=== PATIENT | female | born 1955 | race Caucasian/White ===

== ENCOUNTER → 2016-06-20 | Outpatient (CLI) | payer OTHER ==
[~2016-06-20] MED LIST: ABILIFY10 MG PO; AMBIEN 5 MG TABL5 M1 PO; ASPIRIN325 PO; ATIVAN0.5 MG PO; ATIVAN1 MG OR; CALCIUM 600 +1 EAC1 PO; CENTRUM SILVER1 EAC1 PO; COLACE 100 MG100 MG PO; CYMBALTA30 MG PO; CYMBALTA60 MG PO; HYDROCODON-ACE1 EAC5 PO; HYDROCODON-ACE1 EAC8 PO; HYDROCODONE-APA1 TA1 PO; IBUPROFEN 800800 M1 PO; L-THYROXINE PO; LEVOTHYROXIN0.075 MG PO; LEVOTHYROXINE0.05 MG PO; LEXAPRO20 MG OR; LIPITOR 20 MG T20 M1 PO; NABUMETONE 500500 M1 PO; NEURONTIN600 MG PO; NEXIUM40 MG PO; OXYCODONE HCL 55 MG PO; PROZAC20 MG PO; SENNA S TABLET1 EACH PO; TOPROL XL50 MG PO; ULTRAM 50MG TAB50 MG PO; UNICOMPLEX M TA1 TA1 PO; VITAMIN B-12500 MCG PO; ZOFRAN ODT4 MG PO
== END ==
LOC: RAD 09:25
DX: Z12.31 Encounter for screening mammogram for malignant neoplasm of breast (principal)

== ENCOUNTER 2016-07-30 10:13 | Emergency (ER) | payer OTHER ==
[~2016-07-30] VITALS: Ht 154.9 cm; Wt 56.7 kg
[2016-07-30] MEDS ORDERED: OMEPRAZOLE20 M1 PO (10:24)
[2016-07-30] MEDS ORDERED: WELLBUTRIN SR150 MG PO (10:25)
[2016-07-30] MEDS ORDERED: MAGIC MOUTHWASH SWISH&SPIT (10:43)
== END 2016-07-30 11:07 ==
LOC: ER 10:13
DX: K13.79 Other lesions of oral mucosa (principal); K12.1 Other forms of stomatitis; I10 Essential (primary) hypertension; E78.00 Pure hypercholesterolemia, unspecified; F32.9 Major depressive disorder, single episode, unspecified; Z86.2 Personal history of diseases of the blood and blood-forming organs and certain disorders involving the immune mechanism; Z90.710 Acquired absence of both cervix and uterus; Z85.828 Personal history of other malignant neoplasm of skin; F17.210 Nicotine dependence, cigarettes, uncomplicated; Z90.49 Acquired absence of other specified parts of digestive tract; Z88.2 Allergy status to sulfonamides; Z88.5 Allergy status to narcotic agent; Z88.8 Allergy status to other drugs, medicaments and biological substances

== ENCOUNTER → 2016-10-05 | Outpatient (CLI) | payer OTHER ==
[~2016-10-05] VITALS: Ht 154.9 cm; Wt 54.6 kg
[~2016-10-05] MED LIST changes: +FLUOCINONI0.05 %/30 TOP; +HYDROCODONE-AP1 EAC6 PO; +LIDOCAINE VISC100 ML MM; +MAGIC MOUTHWASH SWISH&SPIT; +MOBIC15 MG PO; +OMEPRAZOLE20 M1 PO; +WELLBUTRIN SR150 MG PO
--- NOTE | ~2016-10-05 | HPC ---
[facility] [place] [address] PAIN MANAGEMENT CONSULTATION Name: LIDIA MCKAY Room #: REG [facility].#: [id number] Admission: 10/05/16 Attend Phys: Diogenes Cruz DO Discharge: Date of : 51 Report #: [id number] THIS REPORT FOR: //name// CC: [facility] physician/PCP Diogenes Pearce MD DATE OF SERVICE: 10/05/2016 DATE OF SERVICE: 10/05/2016 CHIEF COMPLAINT: Mid back pain. Lower extremity pain. HISTORY OF PRESENT ILLNESS: As you know, the patient is a 61-year-old female, who began experiencing low back pain, lower extremity pain with paresthesias that presented approximately 3 weeks ago despite conservative treatment. Her pain intensified. Over the last week, her pain has reached a level of 8/10. She states her pain is sharp and aching in sensation, exacerbated with sitting and walking, improves with ice and rest. She has been referred back to our clinic by her primary care physician to trial an epidural injection under fluoroscopic guidance. As you are aware, the patient has had to have kyphoplasties in the past due to vertebral compression fractures. There is no concern apparently of vertebral compression fracture at this time, appears to be more radicular in origin. The patient was seen in the Emergency Department and subsequently referred back to our clinic to trial an epidural injection. The patient denies any injury or trauma that may have led to symptoms. She has had a slow and progressive worsening of pain. ALLERGIES: PROPOXYPHENE, SULFA, CODEINE. CURRENT MEDICATIONS: Meloxicam, hydrocodone, Lidoderm, bupropion, omeprazole, fluoxetine, multivitamins, metoprolol, atorvastatin, levothyroxine, cyanocobalamin, gabapentin, and calcium carbonate. SOCIAL HISTORY: The patient continues to smoke, reporting half pack tobacco per day. Denies IV or illicit drug use. Denies any chronic alcohol use. She is unaccompanied today. IMAGING: No new imaging available. PHYSICAL EXAMINATION: VITAL SIGNS: Blood pressure 127/82, pulse 62, respiratory rate 16, unlabored. The patient is 100% on room air, height 5 feet 1 inch tall, weight 120 pounds, BMI calculated 22.8. GENERAL: Well developed, well nourished, well hydrated 61-year-old female, who appears her stated age. She smells of tobacco smoke today, [place] [address] PAIN MANAGEMENT CONSULTATION Name: LIDIA MCKAY Room #: REG CLI [facility].#: [id number] Admission: 10/05/16 Attend Phys: Diogenes Cruz DO Discharge: Date of : 51 Report #: [id number] score at 8/10. HEENT: Normocephalic, atraumatic. Pupils equal, round, reactive to light. Extraocular muscles are intact. Sclerae nonicteric, without injection. EXTREMITIES: Show no clubbing, no cyanosis, no edema. MUSCULOSKELETAL: The patient does have some tenderness to palpation over the paraspinal musculature of the thoracic and lumbar area, no spinous process tenderness. Seated straight leg raising negative. Supine straight leg raising negative. Gabriela's test negative. Modified Gaenslen's positive for axial low back pain. Ankle clonus negative. Babinski is negative. She is intact to light touch from L1 through S2 dermatomes. ASSESSMENT: 1. Lumbar radiculopathy. 2. Myofascial pain. 3. Lumbosacral spondylosis with radicular symptoms. 4. Chronic intractable pain. PLAN: 1. The patient returns today in followup visit with increasing back pain, lower extremity pain and paresthesias. Her symptoms do appear to be radicular in origin. The patient was seen in the Emergency Department and subsequently referred to our clinic to trial an epidural injection, as she appeared to be suffering from lumbar radicular symptoms at that time. She has been referred to our clinic to trial an epidural injection. We have advised the patient of the risks and benefits. These risks include but are not necessarily limited to bleeding, bruising, infection, worsening pain, no relief of pain, also risk of temporary or permanent muscle weakness, temporary or permanent nerve damage, possible paralysis and . The patient states understood and wished to proceed. 2. The patient will return to our clinic on an as needed basis for possible repeat epidural injection. 3. The patient was provided a refill prescription on her hydrocodone 5/325 one tab every 6 hours p.r.n. for pain. I have given the patient a short dosing of 45 tablets, advised the patient not to take this medication consistently. She is to take the medication only when pain is intolerable. She is not to rely prophylactically. PROCEDURE NOTE DESCRIPTION OF PROCEDURE: L5-S1 right paramedian epidural steroid injection under fluoroscopic guidance. This is the first procedure of the first series that the patient is undergoing. After obtaining written consent, the patient was taken back to the fluoroscopy suite, placed in a prone position with pillow under the abdomen to decrease [address] [address] PAIN MANAGEMENT CONSULTATION Name: LIDIA MCKAY Room #: REG [facility] [place]#: [id number] Admission: 10/05/16 Attend Phys: Diogenes Cruz DO Discharge: Date of : 51 Report #: [id number] lumbar lordosis. The skin overlying the lumbosacral area was then prepped and draped in aseptic fashion. The L5-S1 vertebral interspace was then identified by AP fluoroscopy. The skin and subcutaneous tissue overlying the target site of injection was anesthetized with 3 mL 1% lidocaine. A 20-gauge 3-1/2 inches Tuohy needle was then advanced under fluoroscopic guidance towards the epidural space using a right paramedian approach. The epidural space was identified using loss of resistance to air technique. After negative aspiration for heme or cerebrospinal fluid, a total of 1 mL of Omnipaque was injected. A lumbar epidurogram was confirmed using both AP and lateral fluoroscopy. After negative aspiration for heme or cerebrospinal fluid, 5 mL of solution containing 2 mL 40 mg per mL, 80 mg total triamcinolone, 3 mL of lidocaine 1% was injected in increments. Contrast spread was noted posterior epidural space. The needle was then retracted approximately half way and needle tract flushed with 1 mL of 1% lidocaine. Needle was then removed. There were no apparent sensory or motor deficits in the lower extremity following the procedure. A sterile bandage was placed over the injection site. The heart rate, pulse, oximetry and blood pressure were continuously monitored after the procedure. There were no apparent complications. The patient tolerated the procedure well and was carefully escorted to the recovery room in stable condition. There were no apparent complications. After meeting discharge criteria, the patient was then discharged home. <ELECTRONICALLY SIGNED> By: Diogenes Cruz DO 10/17/1604 6 Diogenes Cruz DO /nt
[2016-10-05 10:29] VITALS: BP 127/82
== END | disposition home or self-care (01) ==
LOC: PAIN 07:05
DX: M54.16 Radiculopathy, lumbar region (principal); M79.1 Myalgia; M47.27 Other spondylosis with radiculopathy, lumbosacral region; G89.29 Other chronic pain; Z88.8 Allergy status to other drugs, medicaments and biological substances; Z79.899 Other long term (current) drug therapy; Z87.891 Personal history of nicotine dependence

== ENCOUNTER → 2016-10-18 | Outpatient (CLI) | payer OTHER ==
[~2016-10-18] VITALS: Ht 154.9 cm; Wt 53.9 kg
--- NOTE | ~2016-10-18 | HPC ---
[facility] [place] [address] PAIN MANAGEMENT CONSULTATION Name: LIDIA MCKAY Room #: REG [facility].#: [id number] Admission: 10/18/16 Attend Phys: Diogenes Cruz DO Discharge: Date of : 51 Report #: [id number] THIS REPORT FOR: //name// CC: [facility] physician/PCP Diogenes Pearce MD DATE OF SERVICE: 10/18/2016 REFERRING PHYSICIAN: Marie Pearce M.D. CHIEF COMPLAINT: Low back pain and lower extremity pain. HISTORY OF PRESENT ILLNESS: As you know, the patient is a 61-year-old female who returns today in followup visit indicating no improvement with the epidural injection provided at the last visit. The patient states that she received not even transient improvement in symptoms. She indicates the pain level of 7/10. She returns today in followup visit to discuss options for treatment. She, as you are aware, has been visiting the emergency department for ongoing back pain issues. She was seen per their request where her CT examination showed a large amount of stool and even undigested pills in the area. The findings in the lumbar region were noted to be fairly severe arthritic changes. Unfortunately, the patient did not improve with our epidural injection. She returns today in followup visit to discuss other options. ALLERGIES: PROPOXYPHENE, SULFA and CODEINE. CURRENT MEDICATIONS: Meloxicam, hydrocodone, Lidoderm, bupropion, omeprazole, fluoxetine, multivitamin, metoprolol, atorvastatin, levothyroxine, cyanocobalamin, gabapentin and calcium carbonate. SOCIAL HISTORY: The patient continues to smoke half pack tobacco per day and greater prior. Denies IV or illicit drug use. Denies any chronic alcohol use. She is unaccompanied today. IMAGING DATA: No new imaging available. PHYSICAL EXAMINATION: VITAL SIGNS: Blood pressure 135/75, pulse 55 and respiratory rate 14 and unlabored. The patient is 100% on room air, height 5 feet 1 inch tall, weight 118.8 pounds and BMI calculated 22.5. GENERAL: Well developed, well nourished, well hydrated 61-year-old female, appears older than stated age, smells strongly of tobacco smoke, placing current pain score 7/10. HEENT: Normocephalic and atraumatic. Pupils equal, round and reactive to light. Extraocular muscles are intact. [address] [address] PAIN MANAGEMENT CONSULTATION Name: LIDIA MCKAY Room #: REG CLI [facility]#: [id number] Admission: 10/18/16 Attend Phys: Diogenes Cruz DO Discharge: Date of : 51 Report #: [id number] EXTREMITIES: Show no clubbing, no cyanosis and no edema. MUSCULOSKELETAL: The patient remains positive for palpatory tenderness over the lower lumbar spine. Seated straight leg raising negative. Supine straight leg raising is negative. Gabriela's test negative. Modified Gaenslen's positive for axial low back pain. Ankle clonus negative. Babinski is negative. Muscle bulk and tone equal and symmetrical in lower extremities. ASSESSMENT: 1. Lumbar radiculopathy. 2. Myofascial pain. 3. Lumbosacral spondylosis with radicular symptoms. 4. Chronic facet arthropathy of the lumbar spine. 5. Lumbar degeneration. 6. Chronic intractable pain. PLAN: 1. The patient returns today in followup visit indicating no improvement in symptoms, not even transiently with the epidural injection. The patient and I discussed the lack of efficacy with this injection would indicate that we would not move forward with other injections. The fact the patient did not receive even transient improvement in symptoms would indicate that her symptoms are either more profound than originally thought from the CT examination or not amenable to epidural injections. I would recommend further evaluation from a possible a surgical standpoint. We will make some changes in medication therapy today to provide some analgesic benefit while the patient continues further workup and evaluation for possible surgical options. 2. The patient was provided a prescription of [place] 10/325 one tab p.o. q. 6 hours p.r.n. for pain, given the patient #120 tablets, advised the patient to take the medication only when pain is intolerable, not to rely on the medication prophylactically. 3. We will see the patient back in followup visit once she has completed the evaluation from a surgical standpoint. Once this is completed, then we will discuss other options for treatment if requested such as possible spinal cord stimulator, though I believe further imaging will be necessary such as MRI. We have not had the patient undergo new imaging today as we are not confident that the surgeon team will need MRI, they may request a CT myelogram and we will defer to their judgment on which imaging they would be fine necessary. By: [id number] Diogenes Cruz DO /nt
[2016-10-18 09:32] VITALS: BP 135/75
== END | disposition home or self-care (01) ==
LOC: PAIN 07:16
DX: M54.16 Radiculopathy, lumbar region (principal); M79.1 Myalgia; M47.27 Other spondylosis with radiculopathy, lumbosacral region; G89.29 Other chronic pain; M12.88 Other specific arthropathies, not elsewhere classified, other specified site; F17.290 Nicotine dependence, other tobacco product, uncomplicated; Z88.8 Allergy status to other drugs, medicaments and biological substances; Z87.891 Personal history of nicotine dependence

== ENCOUNTER → 2016-11-22 | Outpatient (CLI) | payer OTHER ==
[~2016-11-22] VITALS: Ht 154.9 cm; Wt 52.3 kg
--- NOTE | ~2016-11-22 | HPC ---
[facility] [address] [place] [address] PAIN MANAGEMENT CONSULTATION Name: LIDIA MCKAY Room #: REG [facility]..#: [id number] Admission: 11/22/16 Attend Phys: Diogenes Cruz DO Discharge: Date of : 51 Report #: [id number] THIS REPORT FOR: //name// CC: [facility] physician/PCP IRA Cruz DATE OF SERVICE: 11/22/2016 CHIEF COMPLAINT: Low back pain, lower extremity pain and paresthesias. HISTORY OF PRESENT ILLNESS: As you know, the patient is a 61-year-old female who returns today in followup visit indicating that she is to undergo surgery with Dr. Nolan Zuleta on of this week, on 11/24/2016. She needs refill on her hydrocodone to reach that timeframe. The patient is understanding that as of November 24 she will be treated by Dr. Nolan Zuleta for preop, postoperative and any residual pain that maybe residual after the surgery. She returns today requesting only refill of hydrocodone leading up to surgery. ALLERGIES: PROPOXYPHENE, SULFA AND CODEINE. CURRENT MEDICATIONS: Meloxicam, hydrocodone, Lidoderm, bupropion, omeprazole, fluoxetine, multivitamin, metoprolol, atorvastatin, levothyroxine, cyanocobalamin, gabapentin, calcium carbonate. SOCIAL HISTORY: The patient continues to smoke half pack or greater per day. Denies IV or illicit drug use. Denies any chronic alcohol use. IMAGING: None available. PHYSICAL EXAMINATION: VITAL SIGNS: Blood pressure 141/87, pulse 66, respiratory rate 16 and unlabored. The patient is 100% on room air, height 5 feet 1 inch tall, weight 115.4 pounds, BMI calculated at 21.8. GENERAL: Well-developed, well-nourished, well-hydrated 61-year-old female, appears older than her age, smells strongly of tobacco smoke, placing current pain score 7/10. HEENT: Normocephalic, atraumatic. Pupils equal, round, reactive to light. Extraocular muscles are intact. EXTREMITIES: Show no clubbing, no cyanosis, no edema. MUSCULOSKELETAL: Palpatory tenderness is noted again over the paraspinal musculature of lower lumbar spine. Modified Gaenslen's positive for axial low back pain. Seated straight leg raising negative. Supine straight leg raising is negative. ASSESSMENT: [address] [address] PAIN MANAGEMENT CONSULTATION Name: LIDIA MCKAY Room #: REG [facility]#: [id number] Admission: 11/22/16 Attend Phys: Diogenes Cruz DO Discharge: Date of : 51 Report #: [id number] 1. Chronic lumbar radiculopathy. 2. Myofascial pain. 3. Lumbosacral spondylosis with radicular symptoms. 4. Chronic facet arthropathy of the lumbar spine. 5. Lumbar degeneration. 6. Chronic intractable pain. PLAN: 1. The patient returns today in followup visit indicating that she is to undergo surgery with Dr. Nolan Zuleta on , November 24. She needs refills on medication to make until her surgical date. She is taking hydrocodone 10/325, at this time, we will provide the patient with a short prescription of the medication, #20 tablets. This will provide more than enough for the patient to reach the surgery date of the . The patient was advised from that point forward she will receive opioid medications for pain control through Dr. Bedolla's office. We will not be seeing the patient back in followup visit for postoperative pain issues. I have advised the patient as such today. The surgeon will be receiving a global fee for treatment of this patient, this global fee includes postoperative pain control issues from a surgical standpoint. If the patient over a 3-month period of time is unable to wean off of opioids, she can then return to our clinic for assistance in weaning off medications. I wish her very well. I believe she will do good from a surgical standpoint and should see improvement in her pain quite rapidly We will see the patient back in followup visit if in 3 months her pain is not improved. 2. The patient was provided a prescription of hydrocodone 10/325 1 tab p.o. q. 6 hours p.r.n. for pain. I have given the patient #20 tablets, no refills. 3. We wish to thank Dr. Pearce for the referral of this patient to our clinic. We will be returning her care to your capable hands and service. We again wish to thank you for the opportunity to see her and work with her in regards to her lumbar radicular symptoms. By: [id number] Diogenes Cruz DO /nt
[2016-11-22 08:33] VITALS: BP 141/87
== END | disposition home or self-care (01) ==
LOC: PAIN 07:03
DX: M51.16 Intervertebral disc disorders with radiculopathy, lumbar region (principal); M47.27 Other spondylosis with radiculopathy, lumbosacral region; M79.1 Myalgia; G89.29 Other chronic pain; F17.200 Nicotine dependence, unspecified, uncomplicated

== ENCOUNTER 2017-02-27 16:20 | Emergency (ER) | payer OTHER ==
[~2017-02-27] VITALS: Ht 154.9 cm; Wt 53.1 kg
[2017-02-27 17:23] LABS: HEMATOCRIT 34.5 % (37.0-47.0); HEMOGLOBIN 11.7 gm/dL (12.0-15.0); MCH 33.5 pg (26.0-34.0); MCHC 33.9 g/dL (28.0-37.0); MCV 98.7 fL (80.0-100.0); PLATELET COUNT 248 thou/uL (150-400); RBC 3.49 mil/uL (4.20-5.00); RDW 13.9 % (10.5-14.5); WBC 5.5 thou/uL (4.0-11.0)
[2017-02-27 17:25] LABS: CALCIUM 9.1 mg/dL (8.5-10.1); CREATININE 0.8 mg/dL (0.6-1.0); POTASSIUM 3.6 mmol/L (3.5-5.1)
[2017-02-27 17:31] LABS: ALBUMIN 3.6 g/dL (3.4-5.0); TOTAL BILIRUBIN 0.2 mg/dL (<0.1-1.0); TOTAL PROTEIN 6.9 g/dL (6.4-8.2)
[2017-02-27 17:55] LABS: ABSOLUTE NEUTROPHILS 4.6 thou/uL (1.4-8.2)
[2017-02-27 18:05] LABS: URINE BLOOD NEGATIVE (Negative); URINE CLARITY CLEAR; URINE COLOR YELLOW; URINE GLUCOSE-RANDOM* NEGATIVE (Negative); URINE KETONES TRACE (Negative); URINE LEUKOCYTES-REFLEX NEGATIVE (Negative); URINE NITRITE-REFLEX NEGATIVE (Negative); URINE PROTEIN (DIPSTICK) NEGATIVE (Negative); URINE SPECIFIC GRAVITY 1.025 (1.005-1.035); URINE UROBILINOGEN 0.2 E.U./dl (0.2-1.0)
[2017-02-27 18:06] LABS: URINE BILIRUBIN NEGATIVE (Negative)
[2017-02-27] MEDS ORDERED: REGLAN 10 MG TA10 MG PO (19:05)
[2017-02-27] MEDS ORDERED: LOPERAMIDE 2 MG2 M1 PO (19:05)
[2017-02-27 19:55] VITALS: BP 126/66
[2017-06-14] MEDS ORDERED: GABAPENTIN800 M1 PO (08:32)
[2017-06-14] MEDS ORDERED: TRAZODONE HCL100 MG PO (08:32)
[2017-06-14] MEDS ORDERED: METOPROLOL SUCC50 MG PO (08:33)
[2017-06-14] MEDS ORDERED: OMEPRAZOLE40 MG PO (08:33)
[2017-06-14] MEDS ORDERED: PRAZOSIN HCL1 MG PO (08:33)
[2017-06-14] MEDS ORDERED: FLUOXETINE HCL40 MG PO (08:33)
[2017-06-14] MEDS ORDERED: SYNTHROID50 MCG PO (08:33)
[2017-06-14] MEDS ORDERED: ARIPIPRAZOLE5 MG PO (08:33)
[2017-06-14] MEDS ORDERED: HYDROCODONE-AP1 EAC6 PO (09:04)
== END 2017-02-27 19:56 | disposition home or self-care (01) ==
LOC: ER 16:20
PROVIDERS: Physician Assistant
DX: R11.2 Nausea with vomiting, unspecified (principal); R19.7 Diarrhea, unspecified; R10.13 Epigastric pain; R10.31 Right lower quadrant pain; I10 Essential (primary) hypertension; E78.00 Pure hypercholesterolemia, unspecified; F32.9 Major depressive disorder, single episode, unspecified; Z85.828 Personal history of other malignant neoplasm of skin; Z86.2 Personal history of diseases of the blood and blood-forming organs and certain disorders involving the immune mechanism; Z90.710 Acquired absence of both cervix and uterus; Z88.5 Allergy status to narcotic agent; Z88.2 Allergy status to sulfonamides; Z88.6 Allergy status to analgesic agent; Z87.891 Personal history of nicotine dependence

== ENCOUNTER 2017-03-20 16:34 | Emergency (ER) | payer OTHER ==
[~2017-03-20] VITALS: Ht 154.9 cm; Wt 52.6 kg
[~2017-03-20 16:34] MED LIST changes: +LOPERAMIDE 2 MG2 M1 PO; +REGLAN 10 MG TA10 MG PO
[2017-03-20 17:08] LABS: URINE BILIRUBIN NEGATIVE (Negative); URINE BLOOD NEGATIVE (Negative); URINE CLARITY CLEAR; URINE COLOR YELLOW; URINE GLUCOSE-RANDOM* NEGATIVE (Negative); URINE KETONES NEGATIVE (Negative); URINE LEUKOCYTES NEGATIVE (Negative); URINE NITRITE NEGATIVE (Negative); URINE PROTEIN (DIPSTICK) NEGATIVE (Negative); URINE UROBILINOGEN 0.2 E.U./dl (0.2-1.0)
[2017-03-20 17:19] LABS: ABSOLUTE NEUTROPHILS 2.7 thou/uL (1.4-8.2); BASOPHILS 1.4 % (0.0-2.0); EOSINOPHILS 3.7 % (0.0-3.0); HEMATOCRIT 33.5 % (37.0-47.0); HEMOGLOBIN 11.2 gm/dL (12.0-15.0); LYMPHOCYTES 35.1 % (24.0-44.0); MCH 32.9 pg (26.0-34.0); MCHC 33.6 g/dL (28.0-37.0); MCV 98.1 fL (80.0-100.0); MONOCYTES 11.2 % (1.0-8.0); PLATELET COUNT 301 thou/uL (150-400); POLYS 48.6 % (36.0-66.0); RBC 3.41 mil/uL (4.20-5.00); RDW 13.9 % (10.5-14.5); WBC 5.7 thou/uL (4.0-11.0)
[2017-03-20 17:31] LABS: ANION GAP 7 mmol/L (7-16); BUN 10 mg/dL (7-18); CALCIUM 9.1 mg/dL (8.5-10.1); CHLORIDE 104 mmol/L (98-107); CO2 27 mmol/L (21-32); GLUCOSE 89 mg/dL (74-106); POTASSIUM 4.7 mmol/L (3.5-5.1); SODIUM 138 mmol/L (136-145)
[2017-03-20 17:37] LABS: ALBUMIN 3.9 g/dL (3.4-5.0); DIRECT BILIRUBIN < 0.1 mg/dL (<0.1-0.3); LIPASE 117 U/L (73-393); SGOT 27 U/L (15-37); SGPT 24 U/L (30-65); TOTAL BILIRUBIN 0.2 mg/dL (<0.1-1.0); TOTAL PROTEIN 6.9 g/dL (6.4-8.2)
[2017-03-20] MEDS ORDERED: PHENERGAN 25 MG25 M1 PO (17:49)
[2017-03-20] MEDS ORDERED: ZOFRAN ODT4 MG PO (17:49)
[2017-03-20 19:08] VITALS: BP 113/60
[2017-06-14] MEDS ORDERED: GABAPENTIN800 M1 PO (08:32)
[2017-06-14] MEDS ORDERED: TRAZODONE HCL100 MG PO (08:32)
[2017-06-14] MEDS ORDERED: SYNTHROID50 MCG PO (08:33)
[2017-06-14] MEDS ORDERED: OMEPRAZOLE40 MG PO (08:33)
[2017-06-14] MEDS ORDERED: FLUOXETINE HCL40 MG PO (08:33)
[2017-06-14] MEDS ORDERED: ARIPIPRAZOLE5 MG PO (08:33)
[2017-06-14] MEDS ORDERED: METOPROLOL SUCC50 MG PO (08:33)
[2017-06-14] MEDS ORDERED: PRAZOSIN HCL1 MG PO (08:33)
[2017-06-14] MEDS ORDERED: HYDROCODONE-AP1 EAC6 PO (09:04)
== END 2017-03-20 19:09 | disposition home or self-care (01) ==
LOC: ER 16:34
PROVIDERS: Emergency Medicine
DX: R19.7 Diarrhea, unspecified (principal); R11.2 Nausea with vomiting, unspecified; R10.9 Unspecified abdominal pain; I10 Essential (primary) hypertension; E07.9 Disorder of thyroid, unspecified; E78.00 Pure hypercholesterolemia, unspecified; F32.9 Major depressive disorder, single episode, unspecified; Z85.828 Personal history of other malignant neoplasm of skin; Z87.891 Personal history of nicotine dependence; Z88.2 Allergy status to sulfonamides; Z88.5 Allergy status to narcotic agent

== ENCOUNTER → 2017-03-23 | Outpatient (CLI) | payer OTHER ==
[~2017-03-23] MED LIST changes: +ARIPIPRAZOLE5 MG PO; +FLUOXETINE HCL40 MG PO; +GABAPENTIN800 M1 PO; +METOPROLOL SUCC50 MG PO; +OMEPRAZOLE40 MG PO; +PHENERGAN 25 MG25 M1 PO; +PRAZOSIN HCL1 MG PO; +SYNTHROID50 MCG PO; +TRAZODONE HCL100 MG PO
== END ==
LOC: SEN 08:57
DX: R19.7 Diarrhea, unspecified (principal); R53.1 Weakness; R53.83 Other fatigue

== ENCOUNTER 2017-04-09 11:57 | Inpatient (IN) | payer OTHER ==
[~2017-04-09] VITALS: Ht 154.9 cm; Wt 54.2 kg
[2017-04-09] VITALS (8 sets, daily range): BP systolic 127–146; BP diastolic 61–84
--- NOTE | ~2017-04-09 | EKG ---
[place] [address] [address] [facility] [place] [address] ELECTROCARDIOGRAM REPORT Name: NELYLIDIA TORRESAN Room #: 238-P ADM IN M.R.#: [id number] Admission: 04/09/17 Attend Phys: Diogenes Vance DO Discharge: Date of : 51 Report #: [id number] THIS REPORT FOR: //name// [facility] ED Test Date: 2017-04-09 Test Time: 12:52:05 Pat Name: LIDIA MCKAY Department: Room: 238 Gender: F Medication Reconciliation Technician: maggy : 1955 Requested By: Doreen Rao Order Number: [id number] MD: Kirt Manzano Measurements Intervals [place] Rate: 55 P: 39 AR: 187 QRS: 38 QRSD: 93 T: 46 QT: 447 QTc: 428 Interpretive Statements Sinus bradycardia Otherwise Normal tracing Compared to ECG 09/27/2015 19:12:31 Sinus bradycardia no longer present Electronically Signed On 04-10-2017 7:37:41 HIRED HELP by Kirt Manzano [email or web address] <ELECTRONICALLY SIGNED> By: Kirt Manzano MD, [facility] 04/10/17 0737 1252 125 Kirt Manzano MD, FAC /EPI
[~2017-04-09 11:57] MED LIST changes: -ARIPIPRAZOLE5 MG PO; -FLUOXETINE HCL40 MG PO; -GABAPENTIN800 M1 PO; -METOPROLOL SUCC50 MG PO; -OMEPRAZOLE40 MG PO; -PRAZOSIN HCL1 MG PO; -SYNTHROID50 MCG PO; -TRAZODONE HCL100 MG PO
[2017-04-09 12:39] LABS: BASOPHILS 1.6 % (0.0-2.0); EOSINOPHILS 3.1 % (0.0-3.0); HEMATOCRIT 33.8 % (37.0-47.0); HEMOGLOBIN 11.6 gm/dL (12.0-15.0); MCH 32.7 pg (26.0-34.0); MCHC 34.3 g/dL (28.0-37.0); MCV 95.4 fL (80.0-100.0); MONOCYTES 8.7 % (1.0-8.0); PLATELET COUNT 373 thou/uL (150-400); POLYS 52.6 % (36.0-66.0); RBC 3.54 mil/uL (4.20-5.00); RDW 14.1 % (10.5-14.5); WBC 5.7 thou/uL (4.0-11.0)
[2017-04-09 12:47] LABS: ANION GAP 11 mmol/L (7-16); BUN 11 mg/dL (7-18); CHLORIDE 98 mmol/L (98-107); CO2 25 mmol/L (21-32); CREATININE 0.7 mg/dL (0.6-1.0); GLUCOSE 128 mg/dL (74-106); POTASSIUM 4.1 mmol/L (3.5-5.1); SODIUM 134 mmol/L (136-145)
[2017-04-09 12:49] LABS: BE(vivo) -1.6 mmol/L (-2 to +3); HCO3 22.6 mmol/L (22.0-26.0); PCO2 36.7 mmHg (35.0-45.0); PO2 93.7 mmHg (80.0-100.0); pH 7.408 (7.360-7.450); sO2 97.3 % (92.0-98.0)
[2017-04-09 13:00] LABS: ALBUMIN 4.1 g/dL (3.4-5.0); DIRECT BILIRUBIN < 0.1 mg/dL (<0.1-0.3); SALICYLATE 3.1 mg/dL (2.8-20.0); SGOT 30 U/L (15-37); SGPT 21 U/L (30-65); TOTAL BILIRUBIN 0.3 mg/dL (<0.1-1.0); TOTAL PROTEIN 7.2 g/dL (6.4-8.2)
[2017-04-09 13:59] LABS: AMP/METHAMP Negative (Negative); BARBITURATES Negative (Negative); BENZODIAZEPINES Negative (Negative); COCAINE Negative (Negative); METHADONE Negative (Negative); OPIATES Negative (Negative); PCP Negative (Negative)
[2017-04-10] VITALS (21 sets, daily range): BP systolic 112–156; BP diastolic 55–87
[2017-04-10 04:56] LABS: ABSOLUTE NEUTROPHILS 1.8 thou/uL (1.4-8.2); BASOPHILS 2.4 % (0.0-2.0); EOSINOPHILS 4.4 % (0.0-3.0); HEMATOCRIT 32.4 % (37.0-47.0); HEMOGLOBIN 11.1 gm/dL (12.0-15.0); LYMPHOCYTES 42.9 % (24.0-44.0); MCH 32.7 pg (26.0-34.0); MCHC 34.2 g/dL (28.0-37.0); MCV 95.6 fL (80.0-100.0); MONOCYTES 10.3 % (1.0-8.0); PLATELET COUNT 320 thou/uL (150-400); RBC 3.38 mil/uL (4.20-5.00); RDW 13.5 % (10.5-14.5); WBC 4.4 thou/uL (4.0-11.0)
[2017-04-10 05:28] LABS: ALBUMIN 3.2 g/dL (3.4-5.0); CALCIUM 8.6 mg/dL (8.5-10.1); CREATININE 0.6 mg/dL (0.6-1.0); POTASSIUM 3.2 mmol/L (3.5-5.1); TOTAL BILIRUBIN 0.4 mg/dL (<0.1-1.0); TOTAL PROTEIN 6.2 g/dL (6.4-8.2)
[2017-04-11] VITALS (7 sets, daily range): BP systolic 123–143; BP diastolic 72–81
[2017-06-14] MEDS ORDERED: GABAPENTIN800 M1 PO (08:32)
[2017-06-14] MEDS ORDERED: TRAZODONE HCL100 MG PO (08:32)
[2017-06-14] MEDS ORDERED: FLUOXETINE HCL40 MG PO (08:33)
[2017-06-14] MEDS ORDERED: OMEPRAZOLE40 MG PO (08:33)
[2017-06-14] MEDS ORDERED: METOPROLOL SUCC50 MG PO (08:33)
[2017-06-14] MEDS ORDERED: SYNTHROID50 MCG PO (08:33)
[2017-06-14] MEDS ORDERED: ARIPIPRAZOLE5 MG PO (08:33)
[2017-06-14] MEDS ORDERED: PRAZOSIN HCL1 MG PO (08:33)
[2017-06-14] MEDS ORDERED: HYDROCODONE-AP1 EAC6 PO (09:04)
== END 2017-04-11 13:51 | DRG 918 ==
LOC: ER 11:57 → ICU 13:05 → EROBS 13:05 → ICU 16:10
PROVIDERS: Emergency Medicine; Family Medicine
DX: T39.1X2A Poisoning by 4-Aminophenol derivatives, intentional self-harm, initial encounter (principal); F32.9 Major depressive disorder, single episode, unspecified; I10 Essential (primary) hypertension; E78.00 Pure hypercholesterolemia, unspecified; D64.9 Anemia, unspecified; Z87.81 Personal history of (healed) traumatic fracture; Z85.828 Personal history of other malignant neoplasm of skin; Z86.711 Personal history of pulmonary embolism; Z90.710 Acquired absence of both cervix and uterus; Z87.891 Personal history of nicotine dependence; Z79.899 Other long term (current) drug therapy; Z88.2 Allergy status to sulfonamides; Z88.5 Allergy status to narcotic agent; Z88.8 Allergy status to other drugs, medicaments and biological substances; Y92.89 Other specified places as the place of occurrence of the external cause
CPT/HCPCS: 10078

== ENCOUNTER → 2017-06-14 | Outpatient (CLI) | payer OTHER ==
[~2017-06-14] VITALS: Ht 154.9 cm; Wt 57.6 kg
[~2017-06-14] MED LIST changes: +ARIPIPRAZOLE5 MG PO; +FLUOXETINE HCL40 MG PO; +GABAPENTIN800 M1 PO; +METOPROLOL SUCC50 MG PO; +OMEPRAZOLE40 MG PO; +PRAZOSIN HCL1 MG PO; +SYNTHROID50 MCG PO; +TRAZODONE HCL100 MG PO
--- NOTE | ~2017-06-14 | HPC ---
[facility] [address] [place] [address] PAIN MANAGEMENT CONSULTATION Name: LIDIA MCKAY [facility] [id number] Admission: 06/14/17 Attend Phys: Diogenes Cruz DO Discharge: Date of : 51 Report #: [id number] THIS REPORT FOR: //name// CC: [facility] physician/PCP Diogenes Cruz Referring Physician DATE OF SERVICE: 06/14/2017 CHIEF COMPLAINT: Low back pain, bilateral lower extremity pain and paresthesias. HISTORY OF PRESENT ILLNESS: As you know, the patient is a 61-year-old female who has been advised to return to our clinic by her neurosurgeon, Dr. Nolan Zuleta due to recurrent low back pain, lower extremity symptoms. She apparently underwent surgery with Dr. Zuleta recently and had good efficacy, unfortunately in March, she was on a trip to [facility] where she began to experience increasing pain. She states she might have been too active. The patient states today pain level of 3/10, states pain is intermittent and aching in sensation, exacerbated with sitting, lifting and getting up, improves with heat. She has been referred back to our clinic by her neurosurgeon to trial epidural injection under fluoroscopic guidance. ALLERGIES: PROPOXYPHENE, SULFA, and CODEINE. CURRENT MEDICATIONS: Aripiprazole, fluoxetine, omeprazole, levothyroxine, metoprolol, trazodone, gabapentin, Meloxicam, multivitamin, atorvastatin, and calcium carbonate. SOCIAL HISTORY: The patient continues to smoke half pack tobacco per day and has done so for years. Denies IV or illicit drug use. Denies any chronic alcohol use. She is unaccompanied today. IMAGING: No new imaging available. PQRS: The patient has mild osteoarthritis. No rheumatoid arthritis. She provides a pain intensity 3-4/10. She is not a fall risk, has not had a fall in the last 3 months. She does not take any blood thinners. She is treated for hypertension. She is not on chronic opioids. Her risk assessment is low for opioid dependency. Functional assessment 34/70, moderate interference. PHYSICAL EXAMINATION: VITAL SIGNS: Blood pressure 152/91, pulse 65, respiratory rate 16 and unlabored, the patient 99% on room air, height 5 feet 1 inch tall, weight 127 pounds, and BMI calculated 24. GENERAL: Well-developed, well-nourished, well-hydrated 61-year-old female, [address] [address] PAIN MANAGEMENT CONSULTATION Name: LIDIA MCKAY Room #: REG [facility]#: [id number] Admission: 06/14/17 Attend Phys: Diogenes Cruz DO Discharge: Date of : 51 Report #: [id number] appearing stated age, placing current pain score at 3-4/10. HEENT: Normocephalic, atraumatic. Pupils are equal, round, and reactive to light. Extraocular muscles are intact. Sclerae are nonicteric without injection. NEUROLOGIC: Cranial nerves 2-12 are grossly intact. Speech is fluent. LUNGS: Clear, no wheeze, rhonchi or rales. CARDIOVASCULAR: Regular. No appreciable gallop, no rub. ABDOMEN: Soft, mildly obese, normoactive bowel sounds. EXTREMITIES: Show no clubbing, no cyanosis. MUSCULOSKELETAL: Seated straight leg raising negative. Supine straight leg raising negative. Windy's test negative. Modified Gaenslen's positive for axial low back pain. Ankle clonus negative. Babinski is negative. Intact to light touch from L1 through S2 dermatomes. Lumbar provocation testing is met with increasing pain. ASSESSMENT: 1. Chronic lumbar radiculopathy. 2. Displacement of lumbar intervertebral disk with radicular symptoms. 3. Lumbosacral spondylosis with radicular symptoms. 4. Postsurgical pain. 5. Chronic intractable pain. PLAN: 1. The patient has been advised to return to our clinic to discuss the possibility of undergoing epidural injection to address recurrent pain that began on a trip in March. The patient denies any specific injury or fall that may have led to symptom development. She sought evaluation with Dr. Nolan Zuleta, her neurosurgeon who advised the patient at this time surgical options do not seem necessary. She has been advised to trial more conservative treatment such as epidural injections. She returns today requesting this epidural injection. She has been advised of the risks and the benefits of a lumbar epidural injection, these risks include, but are not necessarily limited to bleeding, bruising, infection, worsening of pain, no relief of pain, also risk of temporary or permanent muscle weakness, temporary or permanent nerve damage, possible paralysis and . The patient states understood and wished to proceed. 2. No medication changes were made at today's visit. The patient to continue current medical therapy as previously prescribed. 3. The patient to return to our clinic on an as needed basis for the next in the series of epidural injections and to discuss other treatment options to address ongoing back and lower extremity pain. PROCEDURE NOTE DESCRIPTION OF PROCEDURE: Lumbar epidural steroid injection under fluoroscopic guidance. [address] [address] PAIN MANAGEMENT CONSULTATION Name: LIDIA MCKAY Room #: REG CLI Peggy#: [id number] Admission: 06/14/17 Attend Phys: Diogenes Cruz DO Discharge: Date of : 51 Report #: [id number] After obtaining written consent, the patient was taken back to fluoroscopy suite, placed in prone position with pillow under abdomen to decrease lumbar lordosis. Skin overlying lumbosacral area was then prepped and draped in aseptic fashion. Lumbar intervertebral spaces were identified by AP fluoroscopy. Skin and subcutaneous tissue overlying target site of injection was anesthetized with 3 mL of 1% lidocaine. A 20-gauge 3-1/2-inch Tuohy needle advanced under fluoroscopic guidance towards the epidural space using a paramedian approach. Epidural space identified using loss of resistance to air technique. After negative aspiration for heme or cerebrospinal fluid, 1 mL of Omnipaque was injected. Lumbar epidurogram was confirmed using both AP and lateral fluoroscopy. After negative aspiration for heme or cerebrospinal fluid, 5 mL of a solution containing 2 mL 40 mg per mL, 80 mg total triamcinolone, 3 mL lidocaine 1% injected slowly. Needle retracted retirement, flushed with 1 mL of 1% lidocaine and removed. Sterile bandage placed over injection site. No new motor deficits present in lower extremity following procedure. The patient tolerated the procedure well, carefully escorted to recovery room in stable condition. No apparent complication. After meeting discharge criteria, the patient discharged home. <ELECTRONICALLY SIGNED> By: Diogenes Cruz DO 06/20/17 1403 [id number] [id number] Diogenes Cruz DO /nt
[2017-06-14 08:35] VITALS: BP 152/91
== END | disposition home or self-care (01) ==
LOC: PAIN 05-16 07:04
DX: M51.16 Intervertebral disc disorders with radiculopathy, lumbar region (principal); M47.27 Other spondylosis with radiculopathy, lumbosacral region; G89.29 Other chronic pain; G89.18 Other acute postprocedural pain; I10 Essential (primary) hypertension; M19.90 Unspecified osteoarthritis, unspecified site; F17.210 Nicotine dependence, cigarettes, uncomplicated; Z88.8 Allergy status to other drugs, medicaments and biological substances; Z79.899 Other long term (current) drug therapy; Z88.2 Allergy status to sulfonamides; Z98.890 Other specified postprocedural states

== ENCOUNTER → 2017-09-12 | Outpatient (CLI) | payer OTHER ==
[~2017-09-12] VITALS: Ht 154.9 cm; Wt 58.2 kg
--- NOTE | ~2017-09-12 | HPC ---
[facility] [address] [place] [address] PAIN MANAGEMENT CONSULTATION Name: LIDIA MCKAY Room #: REG [facility]..#: [id number] Admission: 09/12/17 Attend Phys: Diogenes Cruz DO Discharge: Date of : 51 Report #: [id number] THIS REPORT FOR: //name// CC: Dr. Nolan Zuleta [facility] physician/PCP Diogenes Jones MD DATE OF SERVICE: 09/12/2017 CHIEF COMPLAINT: Low back pain. HISTORY OF PRESENT ILLNESS: As you know, the patient is a 61-year-old female referred back to our clinic for ongoing low back pain issues after surgery with Dr. Nolan Zuleta. She underwent a laminectomy at L4-L5 on 11/24/2016, continued to experience low back pain and left lower extremity pain that was intolerable. She was sent back to our clinic for epidural injections. At last visit, the patient underwent an epidural injection under fluoroscopic guidance with good response reporting an improvement in symptoms of 90%, lasting for about 1-1/2 months. At that visit, we had a long discussion about concerns we had with opioid medications in her situation and advised the patient we would not be writing opioid medications. She returns today to have epidural injection under fluoroscopic guidance and wishes to further discuss the opioid subject once again. She indicates pain level of 7/10. Denies injury or trauma that may have led to symptom development. ALLERGIES: PROPOXYPHENE, SULFA, CODEINE. CURRENT MEDICATIONS: Meloxicam, bupropion, omeprazole, fluoxetine, multivitamins, metoprolol, atorvastatin, levothyroxine, gabapentin, calcium carbonate, trazodone, Abilify, hydrocodone. SOCIAL HISTORY: The patient continues to smoke full pack tobacco per day, has done so for years. Denies IV or illicit drug use. Denies any chronic alcohol use. She is unaccompanied today. IMAGING: No new imaging available. PQRS: The patient has mild osteoarthritis of low back and bilateral hands and knees. She is not suffering from rheumatoid arthritis. She indicates pain intensity today of 7/10. She is not a fall risk, has not had a fall in the last 3 months. She is treated for hypertension, but not on a blood thinner. She has been on opioids in the past, but has a high risk for opioid abuse. PHYSICAL EXAMINATION: VITAL SIGNS: Blood pressure 150/92, pulse 77, respiratory rate 14 and [facility] [address] [place] [address] PAIN MANAGEMENT CONSULTATION Name: LIDIA MCKAY Room #: REG CL M.R.#: [id number] Admission: 09/12/17 Attend Phys: Diogenes Cruz DO Discharge: Date of : 53 Report #: [id number] unlabored. The patient is 100% on room air. Height 5 feet 1 inch tall, weight 128.2 pounds, BMI calculated 24.2. GENERAL: Well-developed, well-nourished, well-hydrated 61-year-old female, appears her stated age. She is in no acute distress. Awake, alert and oriented x 3. Current pain score 7/10. HEENT: Normocephalic, atraumatic. Pupils equal, round, reactive to light. Extraocular muscles are intact. Sclerae are nonicteric without injection. Speech is fluent. EXTREMITIES: Show no clubbing, no cyanosis, no edema. MUSCULOSKELETAL: Lower extremity strength is symmetrical 5/5, intact to light touch from L1 through S2 dermatomes. Seated straight leg raising negative. Supine straight leg raising negative. Windy's test negative. Modified Gaenslen's positive for axial low back pain. ASSESSMENT: 1. Lumbar radiculopathy. 2. Failed lumbar spine surgery. 3. Lumbosacral spondylosis with radicular symptoms. 4. Facet arthropathy of the lumbar spine. 5. Chronic intractable pain. PLAN: 1. The patient returns today in followup visit having noted improvement in symptoms with epidural injection. She reports today a 90% improvement in overall pain lasting for about 1-1/2 months. She returns today to discuss the possibility of undergoing next in a series of epidural injections. She also wishes to discuss opioid medication management. 2. her for 25 minutes today discussing our concerns about her use of opioid medications. Given the fact the patient had attempted 2 different suicide attempts with medications, would indicate to this physician that it would be dangerous if not quite detrimental to provide this patient with medications, which could easily do significant irreparable harm. The patient indicates that she needs these medications for pain control. I do not feel this is necessary and in this patient's case would not be recommended. I have advised the patient at this time, we would not be providing her with opioid medications now or in the future. She indicated to us that she was concerned as we were not providing her treatment for her symptoms. I advised the patient this was not the case, the treatment options just did not include medication management as I do not feel they are necessary nor do I feel that they are a safe treatment option for this patient. 3. The patient and I did discuss at length the other treatment options available for management of pain including physical therapy, stretching exercises, core strengthening. We discussed the epidural injections, spinal cord stimulator and surgical options. The patient chose to continue with epidural injection. 4. The patient and I had a discussion about concerns of trust. The patient [facility] [address] [place] [address] PAIN MANAGEMENT CONSULTATION Name: LIDIA MCKAY [facility] #: [facility].#: [id number] Admission: 09/12/17 Attend Phys: Diogenes Cruz DO Discharge: Date of : 51 Report #: [id number] indicated that she is concerned that we are not listening to her and treating her pain, which I have advised the patient we are doing more than treating her pain, we have been treating all of her symptoms to date. We will not be providing opioid medication as I do not feel that is a treatment option that should be provided. This does not mean we are not treating the patient. She indicated that she does not feel that she can trust our treatment. At that time, I advised the patient we would be more than willing to sever our relationship and if she does not have trust in our treatment options, then she could certainly seek evaluation and treatment at another pain facility. The patient chose to remain with our services. 5. The patient has been consented to undergo an epidural injection. She was advised the risks and benefits of the procedure. These risks include but not necessarily limited to bleeding, bruising, infection, worsening pain, no relief of pain, also risk of temporary or permanent muscle weakness, temporary or permanent nerve damage, possible paralysis, post-dural puncture headache and . The patient states understood and wished to proceed. 6. We will see the patient back in followup visit on an as needed basis. PROCEDURE NOTE DESCRIPTION OF PROCEDURE: L5-S1 interlaminar epidural steroid injection under fluoroscopic guidance. After obtaining written consent, the patient was taken back to fluoroscopy suite, placed in prone position with pillow under abdomen to decrease lumbar lordosis. Skin overlying the lumbosacral area then prepped and draped in aseptic fashion. The L5-S1 vertebral interspace identified by AP fluoroscopy. Skin and subcutaneous tissue overlying target site of injection was anesthetized with 3 mL of 1% lidocaine. A 20-gauge 3-1/2 inch Tuohy needle advanced under fluoroscopic guidance towards the epidural space using a paramedian approach. The epidural space identified using loss of resistance to air technique. After negative aspiration for heme or cerebrospinal fluid, 1 mL of Omnipaque injected. A lumbar epidurogram confirmed using both AP and lateral fluoroscopy. After negative aspiration for heme or cerebrospinal fluid, 5 mL of a solution containing 2 mL 40 mg per mL, 80 mg total triamcinolone and 3 mL lidocaine 1% was injected slowly. During the injection of this medication, the patient indicated she was having some discomfort down the leg. I advised the patient we could stop at any time if she wished. She requested that we continue the treatment. The final bit of medication was then added to the epidural space. The needle was retracted [facility], flushed with 1 mL of 1% lidocaine and removed. Sterile bandage placed over injection site. The patient tolerated the procedure well, carefully escorted [place] [address] PAIN MANAGEMENT CONSULTATION Name: LIDIA MCKAY Room #: [facility]#: [id number] Admission: 09/12/17 Attend Phys: Dioegnes Cruz DO Discharge: Date of : 53 Report #: [id number] stable condition. No apparent complications. After meeting discharge criteria, the patient discharged home. By: [id number] Diogenes Cruz DO /rica
[2017-09-12 12:18] VITALS: BP 150/92
== END | disposition home or self-care (01) ==
LOC: PAIN 08:21
DX: M47.27 Other spondylosis with radiculopathy, lumbosacral region (principal); G89.29 Other chronic pain; Z98.890 Other specified postprocedural states; Z79.899 Other long term (current) drug therapy; Z88.2 Allergy status to sulfonamides; Z88.8 Allergy status to other drugs, medicaments and biological substances; F17.200 Nicotine dependence, unspecified, uncomplicated

== ENCOUNTER 2019-04-18 13:27 | Emergency (ER) | payer OTHER ==
[~2019-04-18] VITALS: Ht 154.9 cm; Wt 65.8 kg
[~2019-04-18 13:27] MED LIST changes: +KEFLEX500 M1 PO; +MIRALAX17 GM PO
[2019-04-18 14:09] LABS: ABSOLUTE NEUTROPHILS 2.9 thou/uL (1.4-8.2); BASOPHILS 0.3 % (0.0-2.0); EOSINOPHILS 2.9 % (0.0-3.0); HEMATOCRIT 35.1 % (37.0-47.0); HEMOGLOBIN 11.7 gm/dL (12.0-15.0); LYMPHOCYTES 32.7 % (24.0-44.0); MCH 34.8 pg (26.0-34.0); MCHC 33.3 g/dL (28.0-37.0); MCV 104.5 fL (80.0-100.0); MONOCYTES 10.6 % (1.0-8.0); PLATELET COUNT 320 thou/uL (150-400); POLYS 53.5 % (36.0-66.0); RBC 3.36 mil/uL (4.20-5.00); RDW 14.4 % (10.5-14.5); WBC 5.4 thou/uL (4.0-11.0)
[2019-04-18 14:12] LABS: ANION GAP 13 mmol/L (7-16); BUN 8 mg/dL (7-18); CALCIUM 8.4 mg/dL (8.5-10.1); CHLORIDE 96 mmol/L (98-107); CO2 24 mmol/L (21-32); CREATININE 0.7 mg/dL (0.6-1.0); GLUCOSE 101 mg/dL (74-106); POTASSIUM 3.6 mmol/L (3.5-5.1); SODIUM 133 mmol/L (136-145)
[2019-04-18 14:23] LABS: ALBUMIN 4.1 g/dL (3.4-5.0); SGOT 34 U/L (15-37); SGPT 36 U/L (30-65); TOTAL BILIRUBIN 0.3 mg/dL (<0.1-1.0); TOTAL PROTEIN 7.2 g/dL (6.4-8.2); TROPONIN-I <0.06 ng/mL (<0.06)
--- NOTE | 2019-04-18 16:32 | EKG ---
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
[2019-04-18 17:22] VITALS: BP 122/55
== END 2019-04-18 17:31 | disposition home or self-care (01) ==
LOC: ER 13:27
PROVIDERS: Physician Assistant
DX: R07.89 Other chest pain (principal); I10 Essential (primary) hypertension; E78.00 Pure hypercholesterolemia, unspecified; M27.2 Inflammatory conditions of jaws; F32.9 Major depressive disorder, single episode, unspecified; Z87.891 Personal history of nicotine dependence; Z90.710 Acquired absence of both cervix and uterus; Z88.5 Allergy status to narcotic agent; Z88.2 Allergy status to sulfonamides

== ENCOUNTER 2019-04-28 11:58 | Inpatient (IN) | payer OTHER ==
[~2019-04-28] VITALS: Ht 154.9 cm; Wt 63.5 kg
[2019-04-28 12:03] VITALS: BP 110/68
[2019-04-28] MEDS ORDERED: SINGULAIR 10 MG10 MG PO (12:29)
[2019-04-28] MEDS ORDERED: TOPROL XL50 MG PO (12:29)
[2019-04-28] MEDS ORDERED: VALACYCLOVIR HCL1 GM PO (12:30)
[2019-04-28 13:41] LABS: URINE BILIRUBIN NEGATIVE (Negative); URINE BLOOD NEGATIVE (Negative); URINE CLARITY CLEAR; URINE COLOR YELLOW; URINE GLUCOSE-RANDOM* NEGATIVE (Negative); URINE KETONES 2+ (Negative); URINE LEUKOCYTES-REFLEX NEGATIVE (Negative); URINE NITRITE-REFLEX NEGATIVE (Negative); URINE PROTEIN (DIPSTICK) NEGATIVE (Negative); URINE SPECIFIC GRAVITY 1.025 (1.005-1.035); URINE UROBILINOGEN 0.2 E.U./dl (0.2-1.0)
[2019-04-28 13:56] LABS: ABSOLUTE NEUTROPHILS 4.1 thou/uL (1.4-8.2); BASOPHILS 0.9 % (0.0-2.0); EOSINOPHILS 3.4 % (0.0-3.0); HEMATOCRIT 33.7 % (37.0-47.0); HEMOGLOBIN 11.4 gm/dL (12.0-15.0); LYMPHOCYTES 22.2 % (24.0-44.0); MCH 34.2 pg (26.0-34.0); MCHC 33.7 g/dL (28.0-37.0); MCV 101.6 fL (80.0-100.0); MONOCYTES 11.6 % (1.0-8.0); PLATELET COUNT 345 thou/uL (150-400); POLYS 61.9 % (36.0-66.0); RBC 3.32 mil/uL (4.20-5.00); RDW 14.1 % (10.5-14.5); WBC 6.7 thou/uL (4.0-11.0)
[2019-04-28 14:11] LABS: ALBUMIN 3.8 g/dL (3.4-5.0); ANION GAP 18 mmol/L (7-16); BUN 22 mg/dL (7-18); CALCIUM 8.7 mg/dL (8.5-10.1); CHLORIDE 94 mmol/L (98-107); CO2 19 mmol/L (21-32); CREATININE 0.8 mg/dL (0.6-1.0); DIRECT BILIRUBIN < 0.1 mg/dL (<0.1-0.2); GLUCOSE 86 mg/dL (74-106); LIPASE 84 U/L (73-393); SGOT 36 U/L (15-37); SGPT 26 U/L (30-65); SODIUM 131 mmol/L (136-145); TOTAL BILIRUBIN 0.3 mg/dL (<0.1-1.0); TOTAL PROTEIN 7.1 g/dL (6.4-8.2)
[2019-04-28 14:13] LABS: POTASSIUM 2.5 mmol/L (3.5-5.1)
[2019-04-28 15:29] LABS: BE(vivo) -5.7 mmol/L (-2 to +3); HCO3 17.2 mmol/L (22.0-26.0); PCO2 26.1 mmHg (35.0-45.0); PO2 63.7 mmHg (80.0-100.0); pH 7.437 (7.360-7.450); sO2 93.5 % (92.0-98.0)
[2019-04-28 16:05] VITALS: BP 133/51
[2019-04-28 17:52] VITALS: BP 118/63
--- NOTE | 2019-04-28 18:30 | NUR ---
PT RECEIVED FROM THE ER TO RM 440 ALERT AND IN NO ACUTE DISTRESS. PT STATES NAUSEA GONE AND HAS NOT HAD BM SINCE AM. ATE SOLIDS FOR DINNER. TAKING KDUR FOR LOW POTASSIUM. IV FLUIDS INFUSING. DOING BETTER.
[2019-04-28 20:41] VITALS: BP 109/62
[2019-04-29 03:20] VITALS: BP 112/67
--- NOTE | 2019-04-29 05:11 | NUR ---
PT IS UP AD ABRAHAM. PT HAS A DEEP CONGESTED COUGH. SHE C/O HEADACHE, USING ICEPAK WELL PAIN MEDS.SOME RELIEF OBTAINED ALSO AFTER PATIENT DRANK A CUP OF COFFEE.AFEBRILE. NO DIARHOEA OR NAUSEA THIS FAR IN THE SHIFT.CONTINUES ON IV FLUIDS.
[2019-04-29 06:49] LABS: HEMATOCRIT 30.3 % (37.0-47.0); HEMOGLOBIN 10.4 gm/dL (12.0-15.0); MCH 35.2 pg (26.0-34.0); MCHC 34.2 g/dL (28.0-37.0); MCV 102.8 fL (80.0-100.0); RBC 2.95 mil/uL (4.20-5.00); RDW 14.3 % (10.5-14.5); WBC 4.9 thou/uL (4.0-11.0)
[2019-04-29 07:00] LABS: CALCIUM 8.5 mg/dL (8.5-10.1); CREATININE 0.6 mg/dL (0.6-1.0)
[2019-04-29 07:06] LABS: POTASSIUM 2.8 mmol/L (3.5-5.1)
[2019-04-29 08:13] VITALS: BP 131/77
--- NOTE | 2019-04-29 15:38 | NUR ---
PT ADMITTED RELATED TO N/V/D, SALICYLATE OVERDOSE (UNINTENTIONAL, NO SI). CM REVIEWED CHART AND SPOKE WITH CARE TEAM. CM MET WITH PT AT BEDSIDE THIS DAY. PT IS A&0 X4. CM ROLE INTRODUCED. PT INDICATED SHE LIVES IN A HOUSE WITH HER PARTNER OF 20 YEARS. 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 PT INDICATED SHE HAD A SPINAL CORD STIMULATOR IMPLANTED 6 WEEKS AGO. PT INIDCATED NO HH OR OP THERAPY HISTORY. PT INDICATED SHE PLAN TO RETURN HOME ONCE MEDICALLY STABLE. CM TO FOLLOW INDICATED WITH DC PLANNING.
[2019-04-29 17:49] VITALS: BP 110/63
--- NOTE | 2019-04-29 18:04 | NUR ---
PT ALERT AND ORIENTED TIMES FOUR. VSS, PT C/O HEADACHE PRN MEDICATIONS GIVEN WITH GOOD RELEIF. PT TOLERATES MEDS AND MEALS. PT UP AB ABRAHAM WITH STEADY GAIT. PT PROGRESSING TOWRADS POC GOALS.
[2019-04-29 19:20] VITALS: BP 115/68
--- NOTE | 2019-04-29 20:04 | NUR ---
ASSESSMENT COMPLETED. AT THIS TIME, PT DENIES ANY HEADACHE. SHE REPORTS H/A WHEN SHE GETS THE COUGHING SPELLS. DENIES NEEDS AT THIS TIME.
[2019-04-30 03:25] VITALS: BP 132/64
[2019-04-30 06:29] LABS: HEMATOCRIT 32.3 % (37.0-47.0); HEMOGLOBIN 10.9 gm/dL (12.0-15.0); MCH 35.4 pg (26.0-34.0); MCHC 33.9 g/dL (28.0-37.0); MCV 104.2 fL (80.0-100.0); RBC 3.1 mil/uL (4.20-5.00); RDW 14.4 % (10.5-14.5); WBC 4.4 thou/uL (4.0-11.0)
[2019-04-30 06:42] LABS: CALCIUM 8.5 mg/dL (8.5-10.1); CREATININE 0.6 mg/dL (0.6-1.0); POTASSIUM 3.9 mmol/L (3.5-5.1)
[2019-04-30 07:18] VITALS: BP 159/76
[2019-04-30] MEDS ORDERED: METOPROLOL SUCC50 MG PO (09:49)
--- NOTE | 2019-04-30 10:17 | NUR ---
ASSUMED CARE OF PATIENT AT 07:52. PATIENT UP AD ABRAHAM. EXPRESSES DESIRE TO DISCHARGE HOME. REPORTS CHRONIC PAIN, MEDS ADMINISTERED ORDERED. PATIENT VERBALIZES ACCURATE UNDERSTANDING OF EDUCATION REGARDING SAFE USE OF MEDICATION AT HOME. STATES SHE DOES NOT PLAN TO TAKE ASPIRIN ANY LONGER. PLANS TO DISCHARGE HOME VIA PRIVATE VEHICLE WITHOUT ANY ADDITIONAL SUPPORT NEEDS. PATIENT PROGRESSED TOWARDS GOALS FOR DISCHARGE.
[2019-04-30 10:20] VITALS: BP 159/76
--- NOTE | 2019-04-30 14:44 | NUR ---
CARE TEAM INDICATED THAT PT IS MEDICALLY STABLE TO DISCHARGE HOME THIS DAY. PT IS TO DISCHARGE HOME TO SELF CARE. NO OTHER CM INTERVENTION INDICATED. CASE CLOSED.
== END 2019-04-30 10:59 | disposition home or self-care (01) | DRG 918 ==
LOC: ER 11:58 → 4S 15:39 → EROBS 15:39 → 4S 16:19
PROVIDERS: Emergency Medicine; ADMIT Hospitalist
DX: T39.014A Poisoning by aspirin, undetermined, initial encounter (principal); E87.2 Acidosis; N80.9 Endometriosis, unspecified; E78.00 Pure hypercholesterolemia, unspecified; F32.9 Major depressive disorder, single episode, unspecified; R10.9 Unspecified abdominal pain; E78.5 Hyperlipidemia, unspecified; E87.6 Hypokalemia; I10 Essential (primary) hypertension; Z86.711 Personal history of pulmonary embolism; Z79.01 Long term (current) use of anticoagulants; Z90.710 Acquired absence of both cervix and uterus; Z90.49 Acquired absence of other specified parts of digestive tract; Z87.01 Personal history of pneumonia (recurrent); Z79.899 Other long term (current) drug therapy; Z88.5 Allergy status to narcotic agent; Z88.2 Allergy status to sulfonamides; Z88.8 Allergy status to other drugs, medicaments and biological substances; Y92.89 Other specified places as the place of occurrence of the external cause; Z87.891 Personal history of nicotine dependence
CPT/HCPCS: 10100; 10195

== ENCOUNTER 2019-05-04 01:19 | Inpatient (IN) | payer OTHER ==
[~2019-05-04] VITALS: Ht 154.9 cm; Wt 65.0 kg
[2019-05-04] VITALS (12 sets, daily range): BP systolic 101–142; BP diastolic 55–79
--- NOTE | ~2019-05-04 | HC ---
[facility] [address] CONSULTATION Name: LIDIA MCKAY Room #: 364-P ADM IN M.R.#: [id number] Admission: 05/04/19 Attend Phys: Ramiro Morales MD Discharge: Date of : 53 Report #: [id number] THIS REPORT FOR: cc: [facility] - Clinic physician unknown [facility] - Clinic physician unknown Fatoumata Rock MD ~ CC: Ramiro RENDON unknown REASON FOR CONSULTATION: Elevated salicylate level. REASON FOR PRESENTATION: Nausea and vomiting. HISTORY OF PRESENT ILLNESS: A 63-year-old with multiple medical problems including chronic pain for which the patient takes aspirin 3-4 times a day, 3-4 pills on each occasion. She was recently hospitalized for a similar incident where her salicylate level was elevated. I was asked to evaluate the patient regarding her ongoing salicylate toxicity level. She denies any tinnitus. She did have some shortness of breath. She denies any loss of consciousness. She had some nausea and vomiting. The patient is known to have extensive past medical history including hypertension, depression. She has history of pulmonary embolism in the past. She tells me that she recently had a spinal cord stimulator, but it is not helping her pain and that is why she takes significant amount of pain killers. MEDICATIONS: 1. Fluoxetine. 2. Levothyroxine. 3. Omeprazole. 4. Metoprolol. 5. Aspirin on daily basis. ALLERGIES: SULFA AND DARVON. REVIEW OF SYSTEMS: GENERAL: Significant for weakness. CARDIOVASCULAR: She had some shortness of breath. PULMONARY: No cough or hemoptysis. GASTROINTESTINAL: As per the history of present illness. GENITOURINARY: No frequency, no urgency. MUSCULOSKELETAL: Chronic back pain issues. SURGICAL HISTORY: 1. Post-hysterectomy. 2. Appendectomy. PAST MEDICAL HISTORY: [facility] [address] [place] [address] CONSULTATION Name: NELYLIDIA Room #: 364-P [facility]#: [id number] Admission: 05/04/19 Attend Phys: Ramiro Morales MD Discharge: Date of : 53 Report #: [id number] 1. History of alcoholism in the past. 2. History of liver failure due to Tylenol overdose. 3. Hypothyroidism. 4. Endometriosis. 5. Osteoporosis. 6. Recurrent admission for salicylate overdose. 7. Anemia. 8. Colon resection. 9. Skin cancer. 10. Hyperlipidemia. SOCIAL HISTORY: Continues to smoke. No drug or alcohol abuse. PHYSICAL EXAMINATION: GENERAL: Alert, oriented. VITAL SIGNS: Blood pressure is 123/72. She is afebrile with a temperature of 36.8. HEAD AND NECK: No jugular venous distention. CHEST: No crackles. CARDIOVASCULAR: No rub detected. ABDOMEN: Soft, nontender. EXTREMITIES: Lower extremities, no edema. LABORATORY VALUES: Reviewed. Sodium is 137, potassium is 2.2, chloride is 94, carbon dioxide is 36. No liver enzymes are available. Salicylate level on presentation was 72.8. ASSESSMENT, IMPRESSION, PLAN: 1. Salicylate toxicity. 2. Chronic pain issues. 3. Remote history of liver failure due to Tylenol overdose. 4. Depression. 5. Thyroid issues. 6. The mainstay of treatment for her salicylate toxicity is continued alkalinization of her serum and urine by the current bicarbonate drip. Salicylate level is trending down appropriately with no indication for dialysis. 7. Keep an eye on her electrolytes and replace p.r.n. 8. Check liver profile. 9. As stated above no hemodialysis indicated and we will continue to follow. By: [id number] Fatoumata Rock MD /nt
[~2019-05-04 01:19] MED LIST changes: +SINGULAIR 10 MG10 MG PO; +VALACYCLOVIR HCL1 GM PO
[2019-05-04 01:58] LABS: ABSOLUTE NEUTROPHILS 4.8 thou/uL (1.4-8.2); BASOPHILS 1.4 % (0.0-2.0); EOSINOPHILS 2.7 % (0.0-3.0); LYMPHOCYTES 22.8 % (24.0-44.0); MCH 34.4 pg (26.0-34.0); MCHC 33.5 g/dL (28.0-37.0); MCV 102.7 fL (80.0-100.0); MONOCYTES 8.6 % (1.0-8.0); PLATELET COUNT 395 thou/uL (150-400); POLYS 64.5 % (36.0-66.0); RDW 14.4 % (10.5-14.5); WBC 7.5 thou/uL (4.0-11.0)
[2019-05-04 02:03] LABS: CALCIUM 9.2 mg/dL (8.5-10.1); CREATININE 0.8 mg/dL (0.6-1.0); MAGNESIUM 1.8 mg/dL (1.8-2.4); POTASSIUM 3.5 mmol/L (3.5-5.1)
[2019-05-04 02:23] LABS: BE(vivo) -6.2 mmol/L (-2 to +3); HCO3 15.1 mmol/L (22.0-26.0); PCO2 VENOUS 20.7 mmHg (41.0-51.0); PO2 VENOUS 81.5 mmHg (35.0-45.0)
--- NOTE | 2019-05-04 06:20 | NUR ---
PT ADMITTED FROM ER IN FAIR CONDITION. ABLE TO AMBULATE TO BED. AOX4. AFEBRILE. DENIED SOA. C/O DIZZINESS AND TIREDNESS. ADMISSION ORDER AND ASSESSMENT COMPLETED AND DOCUMENT. ASKED PATIENT ABOUT SUICIDE IDEATION PRESENTLY WHICH SHE DENIED. PT STATED SHE HAS HAD ATTEMPTED SUICIDE IN THE PAST. VSS. REFUSED FOR NEUMANN TO BE PLACE. PURWICK PLACED, TOLERATING CURRENTLY. CRITICAL SALIXYLATE COMMUNICATED TO CIGAR HEAD STRINGER. TALKED TO POISON CONTROL ABOUT PATIENT'S STATUS. WILL CONTINUE TO MONITOR.
[2019-05-04 07:41] LABS: URINE BILIRUBIN NEGATIVE (Negative); URINE BLOOD NEGATIVE (Negative); URINE CLARITY CLEAR; URINE COLOR YELLOW; URINE GLUCOSE-RANDOM* NEGATIVE (Negative); URINE KETONES 2+ (Negative); URINE LEUKOCYTES-REFLEX NEGATIVE (Negative); URINE NITRITE-REFLEX NEGATIVE (Negative); URINE PROTEIN (DIPSTICK) NEGATIVE (Negative); URINE SPECIFIC GRAVITY 1.015 (1.005-1.035); URINE UROBILINOGEN 0.2 E.U./dl (0.2-1.0)
[2019-05-04 08:11] LABS: TSH 2.197 uIU/mL (0.358-3.740)
--- NOTE | 2019-05-04 08:32 | NUR ---
0800- UPDATED POSION CONTROL, PATIENT COMPLAINING OF TINNITUS. PATIENT STATES THAT IT HAS BEEN THIS WAY ALL NIGHT AND HAS NOT WORSENED. CONSULTS CALLED PER ORDERS. NO FURTHER CONCERNS AT THIS TIME. WILL CONTINUE TO MONITOR AND CARE PER PLAN OF CARE.
[2019-05-04 08:44] LABS: CALCIUM 8.8 mg/dL (8.5-10.1)
[2019-05-04 08:54] LABS: POTASSIUM 2.7 mmol/L (3.5-5.1); SALICYLATE 61.8 mg/dL (2.8-20.0)
--- NOTE | 2019-05-04 13:30 | NUR ---
PATIENT RECEIVED TRANSFER FROM ICU INTO ROOM 3W BED 364. PATIENT ASSESSED AND ATTACHED TO TELE MONITOR. REPORT RECEIVED FROM BALJEET WINCHESTER.
--- NOTE | 2019-05-05 03:40 | NUR ---
PT MAKING PROGRESS TOWARDS GOALS. DENIED ANY NAUSEA THROUGHOUT THE NIGHT. C/O HEADACHE. PT VOICING RELIEF OF HEADACHE AFTER DOSE OF FIORCET.
[2019-05-05 04:26] LABS: URINE BILIRUBIN NEGATIVE (Negative); URINE BLOOD NEGATIVE (Negative); URINE CLARITY CLEAR; URINE COLOR YELLOW; URINE GLUCOSE-RANDOM* NEGATIVE (Negative); URINE KETONES NEGATIVE (Negative); URINE LEUKOCYTES NEGATIVE (Negative); URINE NITRITE NEGATIVE (Negative); URINE PROTEIN (DIPSTICK) NEGATIVE (Negative); URINE UROBILINOGEN 0.2 E.U./dl (0.2-1.0)
[2019-05-05 04:32] VITALS: BP 123/72
[2019-05-05 04:37] LABS: SSA (PROTEIN CONFIRMATORY) NEGATIVE (Negative)
[2019-05-05 04:54] LABS: ALBUMIN 3.3 g/dL (3.4-5.0); ANION GAP 7 mmol/L (7-16); BUN 8 mg/dL (7-18); CHLORIDE 94 mmol/L (98-107); CO2 36 mmol/L (21-32); CREATININE 0.8 mg/dL (0.6-1.0); GLUCOSE 121 mg/dL (74-106); MAGNESIUM 1.8 mg/dL (1.8-2.4); PHOSPHORUS 2.1 mg/dL (2.5-4.9); SALICYLATE < 2.8 mg/dL (2.8-20.0); SODIUM 137 mmol/L (136-145)
[2019-05-05 05:00] LABS: HEMATOCRIT 28.9 % (37.0-47.0); MCH 34.8 pg (26.0-34.0); MCHC 34.1 g/dL (28.0-37.0); PLATELET COUNT 331 thou/uL (150-400); RBC 2.83 mil/uL (4.20-5.00); RDW 14.6 % (10.5-14.5); WBC 5.6 thou/uL (4.0-11.0)
[2019-05-05 05:01] LABS: POTASSIUM 2.2 mmol/L (3.5-5.1)
[2019-05-05 05:04] LABS: HEMOGLOBIN 9.8 gm/dL (12.0-15.0)
[2019-05-05 05:45] LABS: ABSOLUTE NEUTROPHILS 3.5 thou/uL (1.4-8.2); POLYCHROMASIA OCCASIONAL
[2019-05-05 07:40] VITALS: BP 121/76
--- NOTE | 2019-05-05 09:03 | NUR ---
ANTIONE MCCARTHY CONTROL CALLED FOR UPDATE ON LIDIA'S
--- NOTE | 2019-05-05 09:04 | NUR ---
ANTIONE FROM [place] [facility] CALLED AND WANTED UPDATE ON PT'S SALICYLATE LEVEL, LOC, K LEVEL. POISEN CONTROL STATES THEY ARE OKAY IF BICARB IS D/C NOW THAT SALICYLATE LEVEL IS < THAN 30 IF OKAY WITH RENAL DOCTOR. RENAL DOCTOR CALLED AND RN SPOKE WITH HIM. OKAY TO REDRAW K LEVEL AND TO STOP BICARB.
[2019-05-05 11:35] VITALS: BP 111/75
--- NOTE | 2019-05-05 11:42 | NUR ---
HOSPITALIST ROUNDED ON PATIENT AND STATED SHE HAS DR. DIAZ FROM PSYCH CONSULTED. SHE WANTS DR. DIAZ TO ASSESS FOR POSSIBLE NEED FOR PLACEMENT ON 5S SBU OR IN ANOTHER FACILITY POST D/C. HOSPITALIST STATES SHE WILL GO WITH DR. DIAZ'S RECOMMENDATION ON WEATHER OR NOT DR. DIAZ THINKS THE PT IS SAFE TO GO HOME OR WILL NEED INPATIENT PSYCH CARE. DR. DIAZ WAS CONSULTED YESTERDAY 05/04/19. DR ALVARADO STATES TO RECALL THE CONSULT IN AM ON 05/06/[address] DIAZ HAS NOT SEEN PT BUT TO NOT CALL CONSULT TODAY IT IS NOT URGENT AND PT IS NOT BEING D/C TODAY. PT CURRENTLY DENIES ANY IDEAS OF WANTING TO HARM HERSELF AT THIS TIME.
[2019-05-05 15:35] VITALS: BP 127/84
--- NOTE | 2019-05-05 16:51 | NUR ---
PT ARRIVED AT 1509 VIA EMS FROM [facility]. PT ALERT TO SELF AND TIME, PT OFF ON SITUATION BUT AWARE HE IS IN THE HOSPITAL. PT STATES HE WAS FOUND NOT RESPONDING TO CONVERSATION AT HOME AND HIS FAMILY CALLED EMS FOR POSSIBLE SEIZURE. PT STATES HE HAS NOT HAD ANY SEIZURES IN THE PAST. PT HAS WOUND TO SCARAL AND COCCYX AREA. WOUND CONSULT PLACED AND PICTURES PLACED ON CHART, BARRIER CREAM APPLIED AND OPTIFOAM DRESSING PLACED UNTIL PT CAN BE SEE BY WOUND CARE.PANUS REDDENED AND AREA CLEANED AND DRIED AND INTERDRY PLACED IN FOLDS. DR REYNOLDS WAS ON SITE AT THIS TIME AND OBSERVED PT'S SKIN. DR REYNOLDS STATES IT LOOKS LIKE YEAST IN PANUS AREA AND POSSIBLY SACRUM/COCCYX AREA. PT IS FALL RISK AND FALL PRECAUTIONS PUT IN PLACED. PT ABLE TO SIGN HIS OWN CONSENTS. SIDE RAILS PADDED. CONSULT CALLED TO NEUROLOGY. WILL CONTINUE MONITOR PT.
[2019-05-05 20:27] VITALS: BP 118/69
[2019-05-06] VITALS (7 sets, daily range): BP systolic 120–154; BP diastolic 65–92
--- NOTE | 2019-05-06 04:16 | NUR ---
PT MAKING PROGRESS TOWARDS GOALS. DENIES ANY HEADACHE THIS MORNING, SPECIFICALLY RATING IT A "ZERO." C/O BACK PAIN 4-5/10 BUT DENIED ANY NEED FOR TYLENOL. DENIED ANY NAUSEA OVERNIGHT.
[2019-05-06 05:43] LABS: ALBUMIN 3.4 g/dL (3.4-5.0); CALCIUM 8.6 mg/dL (8.5-10.1); CREATININE 0.7 mg/dL (0.6-1.0); PHOSPHORUS 2.6 mg/dL (2.5-4.9); POTASSIUM 3.5 mmol/L (3.5-5.1); TOTAL BILIRUBIN 0.5 mg/dL (<0.1-1.0); TOTAL PROTEIN 6.1 g/dL (6.4-8.2)
--- NOTE | 2019-05-06 07:53 | NUR ---
PT EXPRESSING CONCERN OVER UPCOMING MEETING WITH PSYCHIATRIST. SHE STATED SHE WAS UPSET THE HOSPITALIST PHYSICIAN TOLD HER SHE MAY BE ADMITTED TO [facility] DUE TO HER TWO RECENT OVERDOSES OF ASPIRIN. SUPPORT GIVEN, ENCOURGED TO SPEAK WITH PYSHIATRIST HONESTLY AND OPENLY IN REGARDS TO MEDICATION USE AND HER THOUGHTS.
--- NOTE | 2019-05-06 15:48 | NUR ---
INITIAL ASSESSMENT: Received consult for follow up care. SW reviewed chart and spoke with nursing and attending physician. Pt was admitted from home due to possible intentional overdose. Pt was recently admitted with similar admission dx. Pt discharged home. Psych consulted. Awaiting recommendation from psych regarding disposition. Per chart, pt has been to [facility] in psych in March 2017. ELADIA met with pt at bedside. Introduced role of SW. Pt reports she lives at home with her s/o, Solomon. They have been together for over 20 years. Prior to admission, pt was independent with ADLs. No use of DME. Pt sees Dr. Morales at [facility] for psych follow up care. Pt states she is hoping to discharge lizette today. SW explained that the physicians will need to discuss and determine the disposition and plan. Pt states she will need a cab voucher to go home if her s/o cannot come get her. SW is following to assist as needed with discharge planning.
[2019-05-06] MEDS ORDERED: ACETAMINOPHEN325 M1 PO (18:09)
--- NOTE | 2019-05-06 19:25 | NUR ---
PT DISCHARGED HOME WITH SIG OTHER...HE PICKED HER UP AT ER ENTRANCE WITH TECHNOLOGY SERVICES MANAGER AND AGREES TO MONITOR HER MEDICATIONS INCLUDING OTC...SHE WILL FOLLOW UP WITH OUTPATIENT INTENSIVE PSYCH ...
== END 2019-05-06 19:12 | disposition home or self-care (01) | DRG 918 ==
LOC: ER 01:19 → 3W 02:58 → EROBS 02:58 → ICU 04:21 → 3W 04:30 → ICU 04:30 → 3W 13:38
PROVIDERS: Emergency Medicine; Hospitalist; Nurse Practitioner; ADMIT Hospitalist
DX: T39.012A Poisoning by aspirin, intentional self-harm, initial encounter (principal); E87.2 Acidosis; M87.9 Osteonecrosis, unspecified; J44.1 Chronic obstructive pulmonary disease with (acute) exacerbation; E03.9 Hypothyroidism, unspecified; E87.6 Hypokalemia; I10 Essential (primary) hypertension; E78.00 Pure hypercholesterolemia, unspecified; F32.9 Major depressive disorder, single episode, unspecified; E78.5 Hyperlipidemia, unspecified; F17.210 Nicotine dependence, cigarettes, uncomplicated; G89.29 Other chronic pain; N80.9 Endometriosis, unspecified; M81.0 Age-related osteoporosis without current pathological fracture; K72.90 Hepatic failure, unspecified without coma; E83.39 Other disorders of phosphorus metabolism; M54.9 Dorsalgia, unspecified; Z90.710 Acquired absence of both cervix and uterus; Z86.711 Personal history of pulmonary embolism; Z85.828 Personal history of other malignant neoplasm of skin; Z87.01 Personal history of pneumonia (recurrent); Z79.899 Other long term (current) drug therapy; Z88.5 Allergy status to narcotic agent; Z88.2 Allergy status to sulfonamides; Z88.8 Allergy status to other drugs, medicaments and biological substances; Z90.49 Acquired absence of other specified parts of digestive tract; Y92.89 Other specified places as the place of occurrence of the external cause; Z91.14 Patient's other noncompliance with medication regimen
CPT/HCPCS: 10879

== ENCOUNTER 2019-08-30 10:18 | Emergency (ER) | payer OTHER ==
[~2019-08-30] VITALS: Ht 154.9 cm; Wt 65.8 kg
[~2019-08-30 10:18] MED LIST changes: +ACETAMINOPHEN325 M1 PO
[2019-08-30 12:10] LABS: URINE BILIRUBIN NEGATIVE (Negative); URINE BLOOD NEGATIVE (Negative); URINE CLARITY CLEAR; URINE COLOR YELLOW; URINE GLUCOSE-RANDOM* NEGATIVE (Negative); URINE KETONES NEGATIVE (Negative); URINE LEUKOCYTES-REFLEX NEGATIVE (Negative); URINE NITRITE-REFLEX NEGATIVE (Negative); URINE PROTEIN (DIPSTICK) NEGATIVE (Negative); URINE UROBILINOGEN 0.2 E.U./dl (0.2-1.0)
[2019-08-30] MEDS ORDERED: PERCOCET 5-3251 EACH PO (13:57)
[2019-08-30 14:08] VITALS: BP 134/74
== END 2019-08-30 14:14 | disposition home or self-care (01) ==
LOC: ER 10:18
PROVIDERS: Emergency Medicine
DX: S22.080A Wedge compression fracture of T11-T12 vertebra, initial encounter for closed fracture (principal); I10 Essential (primary) hypertension; Z90.710 Acquired absence of both cervix and uterus; Z90.89 Acquired absence of other organs; Z86.711 Personal history of pulmonary embolism; Z85.828 Personal history of other malignant neoplasm of skin; E78.00 Pure hypercholesterolemia, unspecified; Z90.49 Acquired absence of other specified parts of digestive tract; Z86.2 Personal history of diseases of the blood and blood-forming organs and certain disorders involving the immune mechanism; Z88.5 Allergy status to narcotic agent; Z88.2 Allergy status to sulfonamides; Z87.891 Personal history of nicotine dependence; Z88.8 Allergy status to other drugs, medicaments and biological substances; Z87.01 Personal history of pneumonia (recurrent); X50.9XXA Other and unspecified overexertion or strenuous movements or postures, initial encounter; Y93.89 Activity, other specified; Y92.89 Other specified places as the place of occurrence of the external cause; Y99.8 Other external cause status

== ENCOUNTER 2019-10-05 22:59 | Emergency (ER) | payer OTHER ==
[~2019-10-05] VITALS: Ht 154.9 cm; Wt 65.8 kg
[~2019-10-05 22:59] MED LIST changes: +PERCOCET 5-3251 EACH PO
[2019-10-05 23:32] LABS: URINE BILIRUBIN NEGATIVE (Negative); URINE BLOOD TRACE (Negative); URINE CLARITY CLEAR; URINE COLOR YELLOW; URINE GLUCOSE-RANDOM* NEGATIVE (Negative); URINE KETONES NEGATIVE (Negative); URINE LEUKOCYTES-REFLEX NEGATIVE (Negative); URINE NITRITE-REFLEX NEGATIVE (Negative); URINE PROTEIN (DIPSTICK) NEGATIVE (Negative); URINE UROBILINOGEN 0.2 E.U./dl (0.2-1.0)
[2019-10-06 01:31] VITALS: BP 133/85
== END 2019-10-06 01:32 | disposition home or self-care (01) ==
LOC: ER 22:59
PROVIDERS: Emergency Medicine
DX: M54.6 Pain in thoracic spine (principal); I10 Essential (primary) hypertension; E78.00 Pure hypercholesterolemia, unspecified; Z90.710 Acquired absence of both cervix and uterus; Z90.49 Acquired absence of other specified parts of digestive tract; Z88.5 Allergy status to narcotic agent; Z88.2 Allergy status to sulfonamides; Z88.8 Allergy status to other drugs, medicaments and biological substances; Z87.891 Personal history of nicotine dependence

== ENCOUNTER 2019-10-11 14:57 | Inpatient (IN) | payer OTHER ==
[~2019-10-11] VITALS: Ht 154.9 cm; Wt 64.9 kg
[2019-10-11 15:04] VITALS: BP 145/85
--- NOTE | 2019-10-11 15:30 | NUR ---
PT'S S/O GAY SAXENA CALLS AND LEAVES # [phone]. HE IS ENCOURAGED TO RETURN TO FILL OUT [employer]
[2019-10-11 16:40] LABS: HEMOGLOBIN 13.1 gm/dL (12.0-15.0); MCH 36.6 pg (26.0-34.0); MCHC 34.6 g/dL (28.0-37.0); MCV 105.6 fL (80.0-100.0); PLATELET COUNT 380 thou/uL (150-400); RDW 15.3 % (10.5-14.5); WBC 4.7 thou/uL (4.0-11.0)
[2019-10-11 16:48] LABS: BE(vivo) -4.9 mmol/L (-2 to +3); HCO3 20.7 mmol/L (22.0-26.0); PCO2 40.1 mmHg (35.0-45.0); PO2 68.4 mmHg (80.0-100.0); sO2 92.6 % (92.0-98.0)
[2019-10-11 16:54] LABS: INR 1.1; PROTIME 11.4 Seconds (9.3-11.4)
[2019-10-11 17:12] LABS: ABSOLUTE NEUTROPHILS 3.1 thou/uL (1.4-8.2); MACROCYTES 1+
[2019-10-11 17:22] LABS: ALBUMIN 4.6 g/dL (3.4-5.0); DIRECT BILIRUBIN < 0.1 mg/dL (<0.1-0.2); SGOT 66 U/L (15-37); SGPT 50 U/L (30-65); TOTAL BILIRUBIN 0.5 mg/dL (0.2-1.0)
[2019-10-11 17:23] LABS: CALCIUM 9.2 mg/dL (8.5-10.1); CREATININE 0.7 mg/dL (0.6-1.0); POTASSIUM 4.5 mmol/L (3.5-5.1)
[2019-10-11 17:31] LABS: ALBUMIN 4.6 g/dL (3.4-5.0); SALICYLATE 3.8 mg/dL (2.8-20.0); TOTAL BILIRUBIN 0.5 mg/dL (0.2-1.0)
[2019-10-11 21:48] LABS: URINE BILIRUBIN NEGATIVE (Negative); URINE BLOOD NEGATIVE (Negative); URINE CLARITY CLEAR; URINE COLOR YELLOW; URINE GLUCOSE-RANDOM* NEGATIVE (Negative); URINE KETONES 3+ (Negative); URINE LEUKOCYTES-REFLEX NEGATIVE (Negative); URINE NITRITE-REFLEX NEGATIVE (Negative); URINE PROTEIN (DIPSTICK) NEGATIVE (Negative); URINE UROBILINOGEN 0.2 E.U./dl (0.2-1.0)
[2019-10-11 21:56] LABS: AMP/METHAMP Negative (Negative); BARBITURATES Negative (Negative); BENZODIAZEPINES Negative (Negative); COCAINE Negative (Negative); METHADONE Negative (Negative); OPIATES POSITIVE (Negative); PCP Negative (Negative)
--- NOTE | 2019-10-11 22:07 | NUR ---
TALKED WITH POISON CONTROL REGARDING PT'S IV FLUIDS AND NUMBERS
[2019-10-12] VITALS (20 sets, daily range): BP systolic 92–152; BP diastolic 36–93
[2019-10-12 03:13] LABS: HEMATOCRIT 36.5 % (37.0-47.0); HEMOGLOBIN 12.3 gm/dL (12.0-15.0); MCH 35.1 pg (26.0-34.0); MCHC 33.6 g/dL (28.0-37.0); MCV 104.6 fL (80.0-100.0); RBC 3.49 mil/uL (4.20-5.00); RDW 14.8 % (10.5-14.5); WBC 6.1 thou/uL (4.0-11.0)
[2019-10-12 03:16] LABS: ANION GAP 17 mmol/L (7-16); BUN 13 mg/dL (7-18); CALCIUM 8.2 mg/dL (8.5-10.1); CHLORIDE 96 mmol/L (98-107); CO2 22 mmol/L (21-32); CREATININE 0.6 mg/dL (0.6-1.0); GLUCOSE 122 mg/dL (74-106); POTASSIUM 3.6 mmol/L (3.5-5.1); SODIUM 135 mmol/L (136-145)
--- NOTE | 2019-10-12 07:19 | NUR ---
[employer] DELIVERED 22x PERCOCET [REMAINDER FROM BOTTLE THAT PT BROUGHT IN] TO PHARMACY AT THIS TIME. RECEIPT PORTION OF BAG LEFT ON PT'S CHART FOR RETRIEVAL OF PILLS AFTER D/C
[2019-10-12 09:04] LABS: ALBUMIN 3.7 g/dL (3.4-5.0); DIRECT BILIRUBIN 0.1 mg/dL (<0.1-0.2); TOTAL BILIRUBIN 0.5 mg/dL (0.2-1.0); TOTAL PROTEIN 6.7 g/dL (6.4-8.2)
--- NOTE | 2019-10-12 11:37 | EKG ---
[facility] [place] [address] ELECTROCARDIOGRAM REPORT Name: LIDIA MCKAY Room #: 170- ADM IN M.R.#: [id number] Admission: 10/11/19 Attend Phys: Alvaro Macedo MD Discharge: Date of : 51 Report #: [id number] THIS REPORT FOR: cc: Marie Pearce MD, Jennifer S. MD Couchonnal, Luis F. MD ~ THIS REPORT FOR: //name// [facility] ED Test Date: 2019-10-11 Test Time: 18:37:28 Pat Name: LIDIA MCKAY Department: Room: 170 Gender: F Rf Manager: MARIAMA : 1955 Requested By: Boubacar Del Castillo Order Number: [id number] MD: Manny Zelaya Measurements Intervals [place] Rate: 67 P: 51 MA: 174 QRS: 56 QRSD: 95 T: 24 QT: 425 QTc: 449 Interpretive Statements Sinus rhythm Compared to ECG 04/18/2019 13:32:12 No significant changes Electronically Signed On 10-12-2019 11:37:42 CDT by Manny Zelaya [email or web address] <ELECTRONICALLY SIGNED> By: Manny Zelaya MD 10/12/19 1137 36 36 Manny Zelaya MD /EPI
--- NOTE | 2019-10-12 15:38 | NUR ---
Patient was succesfully transferred from ER to ICU around 1300 today. Patient dry heaving and having nausea but no vomiting. Patients vitals remain stable, sitter is at bedside. Successfully progresising towards goals.
[2019-10-12 16:07] LABS: CALCIUM 7.9 mg/dL (8.5-10.1); CREATININE 0.6 mg/dL (0.6-1.0)
[2019-10-12 16:08] LABS: POTASSIUM 2.8 mmol/L (3.5-5.1)
[2019-10-12 18:51] LABS: SGOT 908 U/L (15-37); SGPT 938 U/L (30-65)
--- NOTE | 2019-10-12 19:22 | NUR ---
Physically patient is becoming more stable. Patient had become inccreasingly more anxious though and required medication to help relax her. Patient still complaining of pain and states "nobody cares about me and nobody is listening to me". This nurse sat and talked with her awhile to help calm down a little. Patient relaxing now. Physically patient improving but regarding her emotional and psychological issues this patient is not progressing towards her goal.
--- NOTE | 2019-10-12 19:23 | NUR ---
RECEIVED REPORT FROM ADRIANA WINCHESTER. ASSUMED PATIENT CARE. SITTER PRESENT AT PATIENT'S BEDSIDE FOR SI PRECAUTIONS. VASCULAR ACCESS NURSE PLACED NEW IV. 20 G IN RIGHT UPPER ARM.
[2019-10-13] VITALS (24 sets, daily range): BP systolic 122–172; BP diastolic 48–108
--- NOTE | 2019-10-13 09:17 | NUR ---
Patient resting well and slept a good 8 hours after receiving Trazodone PO. Patient remains stable physically. Patient has a calm affect, alert and oriented and mood is appropriate.
[2019-10-13 09:28] LABS: ALBUMIN 3.1 g/dL (3.4-5.0); DIRECT BILIRUBIN 0.3 mg/dL (<0.1-0.2); TOTAL BILIRUBIN 0.8 mg/dL (0.2-1.0); TOTAL PROTEIN 5.9 g/dL (6.4-8.2)
--- NOTE | 2019-10-13 10:32 | NUR ---
Patient stated "I just want you to know I did not take the pills to kill myself, so you can stop being so concerned and watching me", patient educated on our SI policy. Patient also asked to have a phone to talk with loved ones. Dr. Loja gave permission for her to use the [employer] phone to talk to her family for 10 mins 3x a day. Patient called Torsten Yao, her significant other, and asked if I could talk to him as well. This nurse updated Torsten on patients status and plan of care at 1030 today. Patient distraught after speaking to Torsten and teared up. Patient not wanting to be consoled by this RN currently or talk. Sitter still at bedside.
[2019-10-13 16:12] LABS: DIRECT BILIRUBIN 0.3 mg/dL (<0.1-0.2); TOTAL BILIRUBIN 0.6 mg/dL (0.2-1.0); TOTAL PROTEIN 5.6 g/dL (6.4-8.2)
--- NOTE | 2019-10-13 17:44 | NUR ---
Pts liver enzymes still elevated. Potassium in normal range. Patient remains stable and mood is calm. Pt talked with Torsten, significant other, twice today. Still monitoring labs. Anxiety much lower than yesterday and paient remains friendl and calm. Sitter at bedside.
--- NOTE | 2019-10-13 19:23 | NUR ---
Nurse discussed live enzymes with poision control and got their recommendation for another round of acetylcysteine. Discussed with pharmacy and got another 16 hour bag. Hepatic labs next at 1530 to check where liver enzymes are at.
--- NOTE | 2019-10-13 19:32 | NUR ---
1899- RECEIVED PATIENT REPORT FROM ADRIANA WINCHESTER. ASSUMED PATIENT CARE. PATIENT C/O HAVING A REGISTERED NURSE OBSTETRICS SITTING WITH HER. PATIENT DEMANDS THAT THE REGISTERED NURSE OBSTETRICS LEAVE THE BEDSIDE IMMEDIATELY AND NOT RETURN. PATIENT HAS STATED THAT SHE DOES NOT LIKE THE REGISTERED NURSE OBSTETRICS AND THAT SHE DOES NOT NEED ANYONE TO WATCH HER BECAUSE SHE CAN KEEP HERSELF SAFE. PATIENT STATED THAT THE REGISTERED NURSE OBSTETRICS IS JUDGING HER AND SHOULD NOT TALK OR COME NEAR HER. PATIENT VERY AGITATED AND ANXIOUS AT THIS TIME. ADRIANA WINCHESTER WENT IN AND EXPLAINED THAT PATIENT DOES NOT GET TO MAKE THAT DECISION AND THAT THE REGISTERED NURSE OBSTETRICS WILL REMAIN AT THE BEDSIDE. PATIENT DEMANDED TO SPEAK WITH THE CORRECTIONS OFFICER. NOTIFIED KAMAR WINCHESTER OF PATIENT REQUEST.
[2019-10-14] VITALS (14 sets, daily range): BP systolic 126–171; BP diastolic 65–89
[2019-10-14 04:57] LABS: ALBUMIN 3.1 g/dL (3.4-5.0); CALCIUM 8.6 mg/dL (8.5-10.1); CREATININE 0.5 mg/dL (0.6-1.0); POTASSIUM 3.4 mmol/L (3.5-5.1); TOTAL BILIRUBIN 0.7 mg/dL (0.2-1.0); TOTAL PROTEIN 5.9 g/dL (6.4-8.2)
[2019-10-14 05:15] LABS: HEMATOCRIT 32.3 % (37.0-47.0); HEMOGLOBIN 11.1 gm/dL (12.0-15.0); MCH 35.7 pg (26.0-34.0); MCHC 34.2 g/dL (28.0-37.0); MCV 104.4 fL (80.0-100.0); RBC 3.09 mil/uL (4.20-5.00); WBC 5.5 thou/uL (4.0-11.0)
--- NOTE | 2019-10-14 09:13 | NUR ---
pt up to bedside for breakfast. sitter in room. pt up to bathroom several times this morning. lab [facility] pt blood. awaiting results and to speak with poison control. dr cervantes to in to [facility] later today.
[2019-10-14 09:19] LABS: ALBUMIN 3.3 g/dL (3.4-5.0); DIRECT BILIRUBIN 0.2 mg/dL (<0.1-0.2); TOTAL BILIRUBIN 0.6 mg/dL (0.2-1.0); TOTAL PROTEIN 6.4 g/dL (6.4-8.2)
--- NOTE | 2019-10-14 13:43 | NUR ---
SPOKE WITH NURSE AND ADMITTING PSYCH DR. REPORT GIVEN. PT CAN GO ANYTIME AND IS GOING TO ROOM 522-A.
--- NOTE | 2019-10-14 13:52 | NUR ---
PT DISCHARGED VIA WHEELCHAIR TO [facility] ACCOMPANIED BY SITTER. PT LEFT AT 1352. PIV WAS DICONTINUED WELL TELE. PT BELONGINGS SENT WITH SITTER TO GIVE TO STAFF UPSTAIRS. PT C/O HEADACHE CALL PLACED TO [facility] TO INFORM THEM.
--- NOTE | 2019-10-14 16:46 | NUR ---
Pt dc'd to [facility] for inpt psych treatment d/t intentional overdose.Pt was cleared medically and evaluated by psych. Pt is voluntary and has hx of suicide attempts in the past. Pt has been inpt at [facility] and [facility] in the past 2-3 years. She has a mental health cm at [facility] as well. The pt lives with her sign other of 20+ years and has previously noted it is not always a healthy relationship. The pt has family history of mental illness and suicide. Pt is normally indep with gait and adl's. [facility]Y TECHNICIAN to follow for dc planning.
== END 2019-10-14 13:57 | DRG 918 ==
LOC: ER 14:57 → ICU 17:57 → EROBS 17:57 → ICU 10-12 12:20
PROVIDERS: Emergency Medicine; Nurse Practitioner Family; ADMIT Hospitalist; ATTEND Hospitalist
DX: T39.1X2A Poisoning by 4-Aminophenol derivatives, intentional self-harm, initial encounter (principal); E87.2 Acidosis; R45.851 Suicidal ideations; I10 Essential (primary) hypertension; K59.00 Constipation, unspecified; E78.00 Pure hypercholesterolemia, unspecified; F32.9 Major depressive disorder, single episode, unspecified; R74.0 Nonspecific elevation of levels of transaminase and lactic acid dehydrogenase [LDH]; E78.5 Hyperlipidemia, unspecified; F17.210 Nicotine dependence, cigarettes, uncomplicated; E03.9 Hypothyroidism, unspecified; Z90.710 Acquired absence of both cervix and uterus; Z86.711 Personal history of pulmonary embolism; Z79.899 Other long term (current) drug therapy; Z90.49 Acquired absence of other specified parts of digestive tract; Z87.81 Personal history of (healed) traumatic fracture; Z88.6 Allergy status to analgesic agent; Z88.2 Allergy status to sulfonamides; Z88.8 Allergy status to other drugs, medicaments and biological substances; Y92.89 Other specified places as the place of occurrence of the external cause; Z03.818 Encounter for observation for suspected exposure to other biological agents ruled out
CPT/HCPCS: 10078

== ENCOUNTER 2019-10-14 14:18 | Inpatient (IN) | payer OTHER ==
[~2019-10-14] VITALS: Ht 154.9 cm; Wt 67.6 kg
[2019-10-14 14:27] VITALS: BP 154/88
--- NOTE | 2019-10-14 15:14 | NUR ---
PT. ARRIVED AT 1430 TODAY. SHE ARRIVED IN W/C FROM A MEDICAL FLOOR. SHE OVERDOSED ON OXYCODONE AND ENDED UP IN THE HOSPITAL. SHE HAS ATTEMPTED THIS BEFORE IN THE PAST AND WAS IN [facility] FOR THIS. SHE IS TEARFUL AND STATES SHE DOES NOT WANT TO BE HERE. SHE STATES SHE ALSO HAS A HISTORY OF ETOH ABUSE IN THE PAST. SHE ALSO STATES SHE IS A SMOKER AND WANTS THE NICORETTE GUM AND NOT THE PATCH. SHE STATES SHE CAN STILL CARE FOR HERSELF INDEPENDENTLY. SHE HAS A PMHX OF A HYSTRECTOMY, COLON SECTION, BROKE BONES IN THE PAST WITH SURGICAL REPAIR, 3 TO 4 BACK SURGERIES AND HAD A BONE STIMULATOR FOR 3 MONTHS AFTER THE LAST SURGERY. SHE CURRENTLY HAS SOME INCONTINENT ISSUES AND WEARS A BRIEF.SHE HAS HAD A DAD AND BROTHER ATTEMPT SI IN THE PAST, AND HER SISTER HAS A HISTORY OF PRESCRIPTION DRUG ABUSE HISTORY. NO SKIN CONDITIONS NOTED. SHE IS 5FT 1 INCH AND WEIGHS 149.1 LBS. HER VS WERE B/P 154/88, O2 94%, HR 70, RESPIRATIONS 20, TEMP. 99.0
[2019-10-14 20:27] VITALS: BP 166/93
[2019-10-15 09:05] VITALS: BP 150/81
[2019-10-15 12:20] LABS: ALBUMIN 3.7 g/dL (3.4-5.0); CALCIUM 9.1 mg/dL (8.5-10.1); CREATININE 0.6 mg/dL (0.6-1.0); POTASSIUM 3.8 mmol/L (3.5-5.1); TOTAL BILIRUBIN 0.5 mg/dL (0.2-1.0); TOTAL PROTEIN 6.8 g/dL (6.4-8.2)
--- NOTE | 2019-10-15 13:39 | NUR ---
Alert and orientated X4. Skeptical about unit. Denies SI/HI. States she has low back pain and ranks it a 6/10. Talked with CLOTH FINISHER, lidocaine patch ordered and placed, tylenol given. Breath sounds clear t/o. Reg HR ausculated. Color pink with brisk capillary refill and palpable peripheral pulses. Independent with voiding. Active bowel sounds over soft, rounded abdomen. Regular steady gait. Participating in groups. Took shower. Interactive with peers and staff.
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
[2019-10-15 19:30] VITALS: BP 119/60
--- NOTE | 2019-10-16 02:58 | NUR ---
Assumed pt care at 1930. Pt is alert and oriented with no sign of distress noted in pt. Pt is seen sitting in the common room. Pt ambulated back to room, steady. Assessment completed and documented. Scheduled meds administered to pt. Pt tolerated PO intake. Pt request for sleeping medication and trazodone was ordered. Pt stated that the ordered dose would not be enough to help her get some sleep. Also, continue to verbalize pain and tylenol was administered. Pt stated that there was not relief with the tylenol for her back pain. Pt is stable through the night. Continue to monitor pt. No further needs at this time.
[2019-10-16 07:23] VITALS: BP 153/88
--- NOTE | 2019-10-16 14:48 | NUR ---
Assumed care 0700. c/o back pain receiving Tylenol with partial help. Denies SI/HI/AH/VH. Eager to go home and get outside. Is understandably bothered by a male patient, confused, who keeps coming in her room, asking to use the restroom, getting in the face of this patient. Staff alerted and will try to keep a watch out for the male patient going into the wrong rooms to redirect him. She is sad, wants to get physical therapy for her back. She converses with a few peers.
--- NOTE | 2019-10-16 15:38 | NUR ---
ELADIA had a 1-1 with pt in her office. Pt initially was upset and stated she wanted to go home now. ELADIA advised her that she was told by Dr. Loja that she will be here through the weekend. Pt became upset. ELADIA contacted Dr. Loja who confirmed that is what she told ELADIA, but then spoke to pt afterwards and said that the logan thing is coming up with a plan with her significant other Torsten. ELADIA hung up with Dr. Loja and spoke to pt who said she does not see the point. ELADIA reminded her that Dr. Loja just changed her meds and would like to come up with a plan so that pt is not likely to do this again as she has taken too many pills now 3 times this year. SW and pt contacted Torsten who agreed there needs to be a plan, but does not know how he can help. He said he has tried administering pt's meds to her, but she gets mad at him if he doesn't give her more. He truly believes pt is experiencing back pain. There is a question on if she has built a dependency to the meds. She also admits that she takes pain meds (including tylenol) to treat the pain in her heart. SW and pt talked more about what she can and cannot control in her relationship with her daughters. She struggles with the fact that both of her daughters do not want a relationship with her. She also has only seen 1 of her 4 grandchildren. This is complicated by the fact that Torsten too is a recovering addict but has a great relationship with his daughter. SW team will continue to follow pt during her stay on this unit.
[2019-10-16 20:04] VITALS: BP 135/77
--- NOTE | 2019-10-16 23:25 | NUR ---
Assumed care on 10/16/19 @ 19:30, seated in the day room on the couch, c/o the noise from peers speaking loudly and crying out in confusion. HRRR, Lungs CTA, BS N x 4q over a soft round abdomen. Requested Trazadone PRN, which was provided. After already in bed requested Nicotine gum. Redirected to allow the sleep meds to work and save Nicotine gum for when she is not in bed. Reported concern about peer knocking on the door of room. Reassured to personal safety, and that will be allowed to close room door. Reports anxiety even though door is locked. In bed at this time, bed in low position, respirations even and unlabored. Will continue to monitor as per protocol.
[2019-10-17 01:52] VITALS: BP 135/77
[2019-10-17 09:17] VITALS: BP 127/71
--- NOTE | 2019-10-17 11:13 | NUR ---
ELADIA lft a msg for pt's therapist Portia Kang. [facility] team will continue to follow pt during her stay on this unit.
[2019-10-17 20:42] VITALS: BP 139/82
--- NOTE | 2019-10-17 23:14 | NUR ---
Assumed care on 10/17/19 @ 19:15, seated in the day room on a couch, wrapped in a blanket, watching tv and socializing with other paients. Cooperated with assessment, HRRR, Lungs CTA, ABD noroactive bowel sounds over a round soft abdomen. Reports BM today. Reports that the reason why she is in the hospital is that her major issue is that she can't see her children and grandchildren. At the same time, she refuses to see that this is an opportunity to repair the relationships. Very negative and locked in denial of hope for imporovement. Reports pain of 6/10, requests Naproxen which is scheduled and provided. Reports Depression which she says is increasing the longer she is inpatient in the hospital. Denies anxiety, AH and VHl. In bed at this writing, bed in low position, patient is allowed to shut door so other patients do not come in to her room. Will continue to monitor as per protocol.
[2019-10-17 23:59] VITALS: BP 139/82
--- NOTE | 2019-10-18 05:26 | NUR ---
@ 0048 provided Natural eye drops and Nicotine gum, and Tylenol 650 for 5/10 lumbar back pain, as per patient request. @ 0430 Nicotine gum provided. Patient reports lower back pain of 6/10, but has no open medications for pain. Continued to sit up in the day room wrapped in a blanket.
[2019-10-18 07:46] VITALS: BP 135/87
--- NOTE | 2019-10-18 09:22 | NUR ---
0700 ASSUMED CARE OF PATIENT, PATIENT SITTING IN DAYROOM AT THAT TIME. PATIENT DENIES NEEDS AT THAT TIME. MEDICATIONS TAKEN WHOLE WITHOUT DIFFICULTY. AFTER BREAKFAST PATIENT UP AMB IN PEÑA WITH A STEADY GAIT.
--- NOTE | 2019-10-18 11:56 | NUR ---
ELADIA contacted [facility] and scheduled an psych appt for pt in anticipation that she will d/c on 10/20. Her appt is scheduled for 10/29 @12:15pm. Fax number to send Dr. Parish d/c docs is [phone]. ELADIA also informed the front end manager staff at [facility] that she has attempted to make contact with pt's therapist Portia. The front end manager staff said she will send her an email asking her to contact ELADIA. [facility] team will continue to follow pt during her stay on this unit.
[2019-10-18 13:30] VITALS: BP 136/87
[2019-10-18 20:00] VITALS: BP 137/84
--- NOTE | 2019-10-19 04:24 | NUR ---
Assumed care on 10/18/19 @ 19:30, A&Ox4, Reports unhappy to be in patient and expresses entitlement to be waited on even though is able to walk, speak and make needs known. PRN Nicotine gum provided with HS meds. Patient requested gum ovenight during one of her insomnia episodes. Redirected to use nicotine during the day and no later that the HS dose. Patient agreed to discuss NOC nicotine consumption with Psychiatrist today during rounding. PRN Trazadone 100 provided as requested for insomnia. Lidocain patch removed @ 0100, as patient was awake when the 12 hour interval occured.
[2019-10-19 07:40] VITALS: BP 140/69
--- NOTE | 2019-10-19 13:34 | NUR ---
PATIENT IRRITABLE AND STATED WANTS TO GO HOME. DISTURBED THAT SHE HAS TO STAY TILL MONDAY. ADVISED WE SELDON D/C ON WEEKENDS. CLAIMS SLEPT WELL. MED COMPLIANT - PACED AROUND UNIT FOR A WHILE - STATES CONSTIPATED AND HELPS - GIVEN MIRALAX TO AID WITH DISCOMFORT. PATIENT MAKES NEEDS KNOWN. DENIES ANY S/I OR H/I - LIDOCAINE PATCH ON LOWER BACK HELPS SOMEWHAT. UP ON UNIT WATCHING TV MOST OF THE DAY.
[2019-10-19 19:35] VITALS: BP 123/69
[2019-10-19 22:09] VITALS: BP 123/69
--- NOTE | 2019-10-20 02:05 | NUR ---
Assumed care of patient this pm shift. Patient in good spirits, calm and cooperative. Patient is alert and oriented x3. Patient is medication adherent and takes medications whole with thin fluids. Patient is ambulatory and not considered a falls risk at this time. Patients assessment shows no signs of acute distress. Patient is continent of bowel and bladder. Patient did not have any questions or concerns for this nurse. Patient did request nicotiene gum which was given. Patients affect is slightly blunted. We will continue to monitor per hospital protocol.
[2019-10-20 07:31] VITALS: BP 122/77
--- NOTE | 2019-10-20 10:55 | NUR ---
PATIENT CARE ASSUMED AT 0700 - PATIENT STATED LOOKING FORWARD TO LEAVING TOMORROW. DENIES ANY S/I WHEN QUESTIONED. REMAINS ANNOYED AND IRRITABLE ABOUT HAVING TO STAY HERE. VOICES HER FEELINGS READILY TO STAFF. PATIENT COMPLIANT WITH MEDICATIONS. CONSTIPATION IMPROVING - AFFECT REMAINS BLUNTED AND MOOD DISCONTENTED - APPETITE GOOD - SLEPT WELL LAST EVENIG WHEN QUESTIONED. SHOWERED AND STATED FELT REFRESHED. CLAIMS WILL COMMIT TO OUTSIDE SUPPORT WHEN OVERWHELMED OR UNABLE TO COPE ONCE DISCHARGED.
[2019-10-20 19:35] VITALS: BP 141/82
--- NOTE | 2019-10-20 23:25 | NUR ---
ASSUMED PT CARE AT 1900.PT UP WITH A STEADY GAIT.DENIED PAIN SO FAR.PT HAS BEEN CALM AND COPERATIVE.PT HAS NOT REQUESTED FOR HER NICORETTE GUM.PT TOOK ALL HER HS MEDS WITHOUT ANY DIFFICULTY.PT RESTING ON HER BED AT THIS TIME WITH HER EYES CLOSED.REPORT GIVEN TO THE NURSE REPLACING ME.AT 2224.
--- NOTE | 2019-10-21 06:19 | NUR ---
Assumed pt's care @ 2300. Pt was given prn tylenol for back pain. Otherwise no other complaints. Pt took morning meds per emar. Pt still in bed in her room. Will continue to monitor.
[2019-10-21 09:00] VITALS: BP 134/69; BP 136/87
[2019-10-21] MEDS ORDERED: DESVENLAFAXINE25 MG PO (10:01)
[2019-10-21] MEDS ORDERED: NAPROXEN250 MG PO (10:01)
--- NOTE | 2019-10-21 10:56 | NUR ---
ELADIA received a phone call from pt's therapist Portia asking her to return the call to [phone]. ELADIA did so. No answer. ELADIA lft msg. [facility] team will continue to follow pt during her stay on this unit.
--- NOTE | 2019-10-21 11:55 | NUR ---
0700 ASSUMED CARE OF PATIENT, PATIENT SITTING IN DAYROOM. PATIENT IN DAYROOM SITTING WITH OTHERS, DENIES NEEDS. PATIENT UP AMB IN PEÑA WITH STEADY GAIT BEFORE BREAKFAST. PATIENT TAKES MEDICATION WHOLE. PATIENT PRESENT IN GROUP. 1000 AM, DC INSTRUCTIONS GIVEN, PATIENT VOICED UNDERSTANDING. PATIENT DRESSED IN OWN SHIRT WITH NO PANTS. PATIENT WILL DC WITH HOSPITAL PANTS. PATIENT SITTING IN DAYROOM WATCHING TV WAITING FOR CAB. PATIENT GETTING ANXIOUS WAITING FOR CAB AND OIL DIPPER EXPLAINED WE NEED TO WAIT TILL CAB ARRIVES. 1200 OIL DIPPER NOTIFIES PT OF CAB ARRIVAL. PATIENT REQUESTING HOME MEDICATION OF OXYCODONE. PER DR DIAZ MEDICATION WILL BE SENT TO PHARMACY FOR DISPOSAL AND NOT RETURNED TO PT. HOME MEDICATION CONTAINING 22 TABS OF OXYCODE WILL BE GIVEN TO PHARMACY. PATIENT NOT HAPPY REGARDING MEDICATION. PATIENT ACCOMPANIED BY STAFF TO CAB WITH BELONGING IN HAND.
== END 2019-10-21 12:00 | disposition home or self-care (01) | DRG 881 ==
LOC: SBH 14:18
PROVIDERS: Hospitalist; ADMIT Psychiatry & Neurology Psychiatry; ATTEND Psychiatry & Neurology Psychiatry
DX: F32.9 Major depressive disorder, single episode, unspecified (principal); R45.851 Suicidal ideations; J44.9 Chronic obstructive pulmonary disease, unspecified; K21.9 Gastro-esophageal reflux disease without esophagitis; G89.29 Other chronic pain; F17.210 Nicotine dependence, cigarettes, uncomplicated; I10 Essential (primary) hypertension; E03.9 Hypothyroidism, unspecified; M54.9 Dorsalgia, unspecified; K59.00 Constipation, unspecified; R74.0 Nonspecific elevation of levels of transaminase and lactic acid dehydrogenase [LDH]; F39 Unspecified mood [affective] disorder; Z90.710 Acquired absence of both cervix and uterus; Z88.5 Allergy status to narcotic agent; Z88.2 Allergy status to sulfonamides; Z88.8 Allergy status to other drugs, medicaments and biological substances; Z90.49 Acquired absence of other specified parts of digestive tract
CPT/HCPCS: 10880

== ENCOUNTER 2019-12-05 09:17 | Emergency (ER) | payer OTHER ==
[~2019-12-05] VITALS: Ht 154.9 cm; Wt 65.8 kg
[~2019-12-05 09:17] MED LIST changes: +DESVENLAFAXINE25 MG PO; +NAPROXEN250 MG PO
[2019-12-05] MEDS ORDERED: OXYCODONE-ACET1 EACH PO (09:26)
[2019-12-05] MEDS ORDERED: QUETIAPINE FUMA25 MG PO (09:26)
[2019-12-05 10:40] LABS: URINE BILIRUBIN NEGATIVE (Negative); URINE BLOOD NEGATIVE (Negative); URINE CLARITY CLEAR; URINE COLOR YELLOW; URINE GLUCOSE-RANDOM* NEGATIVE (Negative); URINE KETONES NEGATIVE (Negative); URINE LEUKOCYTES-REFLEX NEGATIVE (Negative); URINE NITRITE-REFLEX NEGATIVE (Negative); URINE PROTEIN (DIPSTICK) NEGATIVE (Negative); URINE UROBILINOGEN 0.2 E.U./dl (0.2-1.0)
[2019-12-05] MEDS ORDERED: VENTOLIN HFA 1818 GM INH (12:40)
[2019-12-05 13:16] LABS: EOSINOPHILS 3.8 % (0.0-3.0); HEMATOCRIT 32.2 % (37.0-47.0); HEMOGLOBIN 10.9 gm/dL (12.0-15.0); LYMPHOCYTES 30.4 % (24.0-44.0); MCH 35.7 pg (26.0-34.0); MCHC 33.9 g/dL (28.0-37.0); MCV 105.5 fL (80.0-100.0); MONOCYTES 10.3 % (1.0-8.0); PLATELET COUNT 317 thou/uL (150-400); POLYS 54.5 % (36.0-66.0); RBC 3.05 mil/uL (4.20-5.00); RDW 15.1 % (10.5-14.5); WBC 5.5 thou/uL (4.0-11.0)
--- NOTE | 2019-12-05 13:17 | EKG ---
[facility] [place] [address] ELECTROCARDIOGRAM REPORT Name: LIDIA MCKAY Room #: [facility].#: [id number] Admission: 12/05/19 Attend Phys: Discharge: Date of : 51 Report #: [id number] THIS REPORT FOR: cc: Marie Pearce MD, Jennifer S. 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
[2019-12-05 13:21] LABS: ANION GAP 15 mmol/L (7-16); BUN 14 mg/dL (7-18); CHLORIDE 107 mmol/L (98-107); CO2 21 mmol/L (21-32); CREATININE 0.7 mg/dL (0.6-1.0); GLUCOSE 96 mg/dL (74-106); POTASSIUM 3.9 mmol/L (3.5-5.1); SODIUM 143 mmol/L (136-145)
[2019-12-05 13:32] LABS: ALBUMIN 3.9 g/dL (3.4-5.0); SGOT 27 U/L (15-37); SGPT 53 U/L (30-65); TOTAL BILIRUBIN 0.3 mg/dL (0.2-1.0); TOTAL PROTEIN 7.4 g/dL (6.4-8.2); TROPONIN-I <0.06 ng/mL (<0.06)
[2019-12-05 14:05] VITALS: BP 133/80
[2019-12-05] MEDS ORDERED: PROTONIX40 MG PO (14:10)
== END 2019-12-05 14:05 | disposition home or self-care (01) ==
LOC: ER 09:17
PROVIDERS: Emergency Medicine
DX: J06.9 Acute upper respiratory infection, unspecified (principal); R19.7 Diarrhea, unspecified; Z20.828 Contact with and (suspected) exposure to other viral communicable diseases; R51.9 Headache, unspecified; R07.9 Chest pain, unspecified; K21.9 Gastro-esophageal reflux disease without esophagitis; Z90.711 Acquired absence of uterus with remaining cervical stump; Z98.890 Other specified postprocedural states; Z79.899 Other long term (current) drug therapy; Z88.5 Allergy status to narcotic agent; Z88.2 Allergy status to sulfonamides; Z88.8 Allergy status to other drugs, medicaments and biological substances; Z87.891 Personal history of nicotine dependence

== ENCOUNTER 2020-02-23 11:57 | Emergency (ER) | payer OTHER ==
[~2020-02-23] VITALS: Ht 149.9 cm; Wt 60.8 kg
[~2020-02-23 11:57] MED LIST changes: +OXYCODONE-ACET1 EACH PO; +PROTONIX40 MG PO; +QUETIAPINE FUMA25 MG PO; +VENTOLIN HFA 1818 GM INH
[2020-02-23 11:59] VITALS: BP 109/70
[2020-02-23] MEDS ORDERED: NORFLEX100 MG PO (12:35)
[2020-02-23] MEDS ORDERED: MOBIC15 MG PO (12:35)
== END 2020-02-23 13:10 | disposition home or self-care (01) ==
LOC: ER 11:57
DX: M54.5 Low back pain (principal); G89.29 Other chronic pain; Z90.711 Acquired absence of uterus with remaining cervical stump; Z98.890 Other specified postprocedural states; Z79.899 Other long term (current) drug therapy; Z88.5 Allergy status to narcotic agent; Z88.2 Allergy status to sulfonamides; Z88.8 Allergy status to other drugs, medicaments and biological substances; Z87.891 Personal history of nicotine dependence

== ENCOUNTER 2021-03-05 10:59 | Emergency (ER) | payer OTHER ==
[~2021-03-05] VITALS: Ht 154.9 cm; Wt 52.2 kg
[~2021-03-05 10:59] MED LIST changes: +NORFLEX100 MG PO
[2021-03-05 11:01] VITALS: BP 172/99
[2021-03-05 11:18] LABS: URINE BILIRUBIN NEGATIVE (Negative); URINE BLOOD NEGATIVE (Negative); URINE CLARITY CLEAR; URINE COLOR YELLOW; URINE GLUCOSE-RANDOM* NEGATIVE (Negative); URINE KETONES NEGATIVE (Negative); URINE LEUKOCYTES-REFLEX NEGATIVE (Negative); URINE NITRITE-REFLEX NEGATIVE (Negative); URINE PROTEIN (DIPSTICK) NEGATIVE (Negative); URINE UROBILINOGEN 0.2 E.U./dl (0.2-1.0)
[2021-03-05 11:25] LABS: HEMATOCRIT 32.2 % (37.0-47.0); HEMOGLOBIN 10.2 gm/dL (12.0-15.0); MCH 28.3 pg (26.0-34.0); MCHC 31.8 g/dL (28.0-37.0); MCV 88.9 fL (80.0-100.0); PLATELET COUNT 337 thou/uL (150-400); RBC 3.62 mil/uL (4.20-5.00); RDW 17.2 % (10.5-14.5); WBC 2.8 thou/uL (4.0-11.0)
[2021-03-05 11:38] LABS: CALCIUM 8.8 mg/dL (8.5-10.1); CREATININE 0.6 mg/dL (0.6-1.0); POTASSIUM 4.4 mmol/L (3.5-5.1)
[2021-03-05 11:42] LABS: TOTAL BILIRUBIN 0.2 mg/dL (0.2-1.0); TOTAL PROTEIN 7.5 g/dL (6.4-8.2)
[2021-03-05 12:13] LABS: AMP/METHAMP Negative (Negative); BARBITURATES Negative (Negative); BENZODIAZEPINES POSITIVE (Negative); COCAINE Negative (Negative); METHADONE Negative (Negative); OPIATES Negative (Negative); PCP Negative (Negative)
[2021-03-05 12:17] LABS: SALICYLATE 3.1 mg/dL (2.8-20.0)
[2021-03-05 12:27] LABS: ABSOLUTE NEUTROPHILS 1.6 thou/uL (1.4-8.2)
[2021-03-05 12:34] LABS: ANISOCYTOSIS 1+; HYPOCHROMASIA 1+; POIKILOCYTOSIS 1+
== END 2021-03-05 13:50 | disposition home or self-care (01) ==
LOC: ER 10:59
PROVIDERS: Nurse Practitioner Family
DX: U07.1 COVID-19 (principal); F32.9 Major depressive disorder, single episode, unspecified; I10 Essential (primary) hypertension; E78.5 Hyperlipidemia, unspecified; Z90.710 Acquired absence of both cervix and uterus; Z98.890 Other specified postprocedural states; Z79.51 Long term (current) use of inhaled steroids; Z79.891 Long term (current) use of opiate analgesic; Z79.899 Other long term (current) drug therapy; Z88.5 Allergy status to narcotic agent; Z88.2 Allergy status to sulfonamides; Z88.8 Allergy status to other drugs, medicaments and biological substances; Z87.891 Personal history of nicotine dependence